=== PATIENT | male | born 1935 | race Caucasian/White ===

== ENCOUNTER 2019-02-23 10:03 | Inpatient (IN) | payer OTHER, MEDICARE ==
[2019-02-23] MEDS ORDERED: ACETAMINOPHEN 325 MG TAB PO PRN (11:22)
[2019-02-23 11:42] LABS: PLATELET COUNT 154 10^3/uL (150-400)
[2019-02-23] MEDS ORDERED: FUROSEMIDE 100 MG/10 ML VIAL IVP ONE (12:58)
[2019-02-23] MEDS ORDERED: SODIUM BICARBONATE 650 MG TAB PO SCH (13:00)
[2019-02-23] MEDS: CHOLECALCIFEROL VIT D3 1,000 UNITS TAB PO SCH (14:23)
--- NOTE | 2019-02-23 14:43 | GHP ---
[f rep st] HISTORY AND PHYSICAL DATE OF ADMISSION: 02/23/2019 PRIMARY DIAGNOSIS: Congestive heart failure with acute current exacerbation. PAST MEDICAL HISTORY: Includes obesity; hypertension; hyperlipidemia; type 2 diabetes mellitus; obst ructive sleep apnea, currently untreated; BPH; congestive heart failure. SOCIAL HISTORY: Nonsmoker. Occasional drinker, drinks 2-4 times per month. FAMILY HISTORY: Includes father from ulcerative colitis at age 47. Mother at age 88 after hip replacement graft. Grandfather at age 72 from renal failure. ALLERGIES: No known drug allergies. HISTORY OF PRESENTING ILLNESS: An 83-year-old male who was admitted through primary care office for worsening congestive heart failure. He was seen approximately 2 weeks ago and was found to have a BN P of about 6000 and a creatinine of about 3.5. His family reached out to his primary care over the p ast couple of days, noting that he had significantly decompensated and was unable to leave the house due to extreme fatigue and weakness. His shortness of breath had also increased. In discussion with Duane today, he did not feel he was able to even come into the primary care office because of his sev ere decompensation. He did agree to go into the hospital for further evaluation and probable diuresi s. On arrival, he was found to be markedly decompensated with a BNP of 19,500 and found to be in acu te kidney failure with a creatinine of 6.7. Electrolytes currently remain stable. REVIEW OF SYSTEMS: CONSTITUTIONAL: The patient complains of worsened fatigue and generalized weaknes s. Denies fevers, chills. RESPIRATORY: Complains of productive cough and increased shortness of br eath, orthopnea, dyspnea on exertion. CARDIOVASCULAR: Denies chest pain, palpitations, dizziness, l ightheadedness. Has noticed marketed generalized edema and bloating which has worsened over the past week or so. GI: Denies nausea, vomiting, diarrhea, or abdominal tenderness. : Denies changes t o urinary frequency, quantity. Denies dysuria. SKIN: Notes a few scabbed wounds to his lower extre mities. PHYSICAL EXAM: GENERAL: Alert, oriented. VITAL SIGNS: Stable. HEAD: Normocephalic, atraumatic. EENT: PEERL, EOMI. CARDIOVASCULAR: Distant heart sounds. S1, S2. Regular rate and rhythm. LUNG S: Distant breath sounds largely due to body habitus, but no audible rhonchi or rales. ABDOMEN: So ft, nontender, nondistended. Unable to evaluate for hepatosplenomegaly due to body habitus. SKIN: Warm, dry, pale. EXTREMITIES: 3+ by 4+ bilateral lower extremity pitting edema. A few scattered s cabbed wounds to bilateral lower extremities without evidence of infection or complication. NEUROLOG IC: Grossly intact. ASSESSMENT AND PLAN: 1. Congestive heart failure, acute on chronic. We will obtain echocardiogram and consult Cardiology . After discussion with Nephrology, we will start IV Lasix at 120 mg for now to see if we can diures e. Given current ectopy on tele, we will hold off on dobutamine for now. 2. Acute kidney injury. As noted above, I consulted Nephrology (appreciate assistance). Creatinine is currently 6.7, BUN is 107, potassium 4.8. As recommended by Nephrology, we will obtain renal ult rasound, urine sodium, and start Lasix and bicarb. A Blake is placed for monitoring of urine output. We will continue to monitor. 3. History of hypertension. We will hold antihypertensives for now with diuresis and renal failure. 4. Advanced Directives. The patient wishes to discuss code status further with his family. In the past he has suggested that he would not like to be a full COR, but would rather be a DNR. However, a t this time, he would like to remain a full COR until he discusses further with the family. I have e ncouraged them to fill out a MOLST form. 5. Disposition. Admit to inpatient as anticipate greater than 2 midnight stay. /[id number]/MODL
--- NOTE | 2019-02-23 14:57 | PDCONSULT ---
[employer]ant [employer] Superintendent Note: Assessment/Plan: SILVIA on CKD 4: baseline Cr seems to be around 2.2-2.4, now up to 6.7 in setting of marked volume overload, taking lisinopril/Bumex/HCTZ at home, and likely worsening heart failure. - No emergent need for HD but very likely he will need it in the next couple days unless he has marked improvement. - Pt got Lasix 120mg IV x1 today, will evaluate response and adjust as needed. - Will check urine studies, renal US, SPEP/UPEP and free light chains. - Avoid hypotension and nephrotoxins. - Blake catheter to be placed. - Holding lisinopril, would avoid RAAS blockade for now. - Will continue to monitor closely. Hypervolemia: could be from renal disease or heart disease, Echo pending but reportedly has EF around 30%. - Will await Echo results, agree with cardiology consult. - Will check urine PCR. - Will await response to diuretics before adjusting. - Will place on 1200ml fluid restriction. - If pt has poor response to diuretics, would prompt to start dialysis sooner. - Would hold amlodipine and pioglitazone indefinitely. Metabolic acidosis: likely due to renal disease. - Will start on sodium bicarb tabs. - Will check VBG in am. HTN: BP ok at this time, would hold lisinopril and HCTZ for now and will modulate with IV diuretics for now. Will continue to monitor. Thank you for the interesting consult. Nephrology will continue to follow, please call if you have any additional questions or concerns. H & P Stated Complaint: SILVIA Time Seen by Provider: 02/23/19 11:00 HPI/ROS: HPI: Mr. Ramos is an 83 yo M with h/o CKD, DM and HTN who is being admitted today for volume overload and SILVIA. Pt has longstanding HTN and DM, he notes that lately his DM has been more uncontrolled. His baseline Cr recently seems to be around 2.2-2.4, which is where it was earlier this month. Pt states that he noticed in January that he was having worsening swelling, prior to that would occasionally get swelling in ankles but this was more progressive, and he started to have worsening dyspnea on exertion. He was evaluated by PCP earlier this month, noted to have elevated BNP and was started on Bumex 1mg daily. Pt states that initially he lost about 10 pounds in a week, and repeat labs on 02/09 showed Cr up to 3.1 from 2.4. He then felt the swelling get worse, more fatigued, decreased appetite and no taste, and his dyspnea became worse. He was told to come to hospital today for admission. His Cr is now 6.7, he notes that he has not had much UOP lately. He has continued to take Bumex once a day , also taking lisinopril and HCTZ at home. He denies any NSAIDs or other concerning OTC supplements. He denies ever having cardiac issues before, no CAD , no stents, no arrhythmias. He denies any hematuria or dysuria, no rash or synovitis. ROS: positive per HPI, rest of 10-point ROS negative - Medical/Surgical History Hx Asthma: No Hx Chronic Respiratory Disease: No Hx Diabetes: Yes Hx Cardiac Disease: Yes Hx Renal Disease: Yes Hx Cirrhosis: No Hx Alcoholism: No Hx HIV/AIDS: No Hx Splenectomy or Spleen Trauma: No Other PMH: CKD, DM2, Htn, shingles - Family History Significant Family History: Renal disease (grandfather passed of renal failure, aunt had ESRD requiring dialysis) - Social History Smoking Status: Never smoked - Physical Exam Exam: General: alert and oriented, no acute distress Eyes: EOMI, PERRL OP: clear, MMM Neck: supple, no thyromegaly CV: RRR, +3 edema BLE Resp: CTA bilat, nonlabored respirations on RA, no crackles Abd: Soft, NT/ND Neuro: CN II-XII Grossly intact, no asterixis Psych: cooperative, appropriate mood and affect Skin: C/D/I, no rash Constitutional: Initial Vital Signs Temperature (C) 36.6 C 02/23/19 11:30 Heart Rate 109 H 02/23/19 11:30 Respiratory Rate 21 H 02/23/19 11:30 Blood Pressure 117/47 L 02/23/19 11:30 O2 Sat (%) 97 02/23/19 11:30 O2 Delivery Mode Room Air Allergies/Adverse Reactions: No Known Allergies Allergy (Verified 03/23/12 19:12) Home Medications: Medication Instructions Recorded Aspirin [Aspirin 81mg (OTC)] 81 mg PO HS 03/23/12 Cyanocobalamin (Vitamin B-12) 1,000 mcg PO DAILY 03/23/12 [Vitamin B-12] Folic Acid 400 mcg PO DAILY 03/23/12 Levemir Insulin 20 units SQ HS 03/23/12 Lisinopril [Zestril 40 mg (RX)] 40 mg PO DAILY 03/23/12 Metformin HCl [Metformin HCl 1000 1,000 mg PO BID 03/23/12 mg] Niacin ER [Niaspan 1000 mg (RX)] 1,000 mg PO HS 03/23/12 Alpine-3 Ethyl Est-Lovaza [Lovaza 1 2 gm PO BID 03/23/12 gm (RX)] Pioglitazone HCl [Actos] 30 mg PO DAILY 03/23/12 Simvastatin [Zocor 20 mg (RX)] 20 mg PO HS 03/23/12 amLODIPine BESYLATE [Norvasc 10 mg 10 mg PO DAILY 03/23/12 (RX)] Bumetanide [Bumex (*)] 1 mg PO DAILY 02/23/19 Cholecalciferol Vit D3 [Vitamin D3 2,000 units PO DAILY 02/23/19 (*)] Hydrochlorothiazide [HCTZ (*)] 25 mg PO DAILY 02/23/19 Lab and Imaging 02/23/19 11:30 02/23/19 11:30 WBC 6.91 10^3/uL (3.80-9.50) 02/23/19 11:30 RBC 3.84 10^6/uL (4.40-6.38) L 02/23/19 11:30 Hgb 10.9 g/dL (13.7-17.5) L 02/23/19 11:30 Hct 34.6 % (40.0-51.0) L 02/23/19 11:30 MCV 90.1 fL (81.5-99.8) 02/23/19 11:30 MCH 28.4 pg (27.9-34.1) 02/23/19 11:30 MCHC 31.5 g/dL (32.4-36.7) L 02/23/19 11:30 RDW 16.5 % (11.5-15.2) H 02/23/19 11:30 Plt Count 154 10^3/uL (150-400) 02/23/19 11:30 MPV 10.0 fL (8.7-11.7) 02/23/19 11:30 Neut % (Auto) 56.9 % (39.3-74.2) 02/23/19 11:30 Lymph % (Auto) 30.1 % (15.0-45.0) 02/23/19 11:30 [place] % (Auto) 10.9 % (4.5-13.0) 02/23/19 11:30 Eos % (Auto) 1.6 % (0.6-7.6) 02/23/19 11:30 Baso % (Auto) 0.4 % (0.3-1.7) 02/23/19 11:30 Nucleat RBC Rel Count 0.0 % (0.0-0.2) 02/23/19 11:30 Absolute Neuts (auto) 3.93 10^3/uL (1.70-6.50) 02/23/19 11:30 Absolute Lymphs (auto) 2.08 10^3/uL (1.00-3.00) 02/23/19 11:30 Absolute Monos (auto) 0.75 10^3/uL (0.30-0.80) 02/23/19 11:30 Absolute Eos (auto) 0.11 10^3/uL (0.03-0.40) 02/23/19 11:30 Absolute Basos (auto) 0.03 10^3/uL (0.02-0.10) 02/23/19 11:30 Absolute Nucleated RBC 0.00 10^3/uL (0-0.01) 02/23/19 11:30 Immature Gran % 0.1 % (0.0-1.1) 02/23/19 11:30 Immature Gran # 0.01 10^3/uL (0.00-0.10) 02/23/19 11:30 Sodium 141 mEq/L (135-145) 02/23/19 11:30 Potassium 4.8 mEq/L (3.5-5.2) 02/23/19 11:30 Chloride 111 mEq/L (97-110) H 02/23/19 11:30 Carbon Dioxide 16 mEq/l (22-31) L 02/23/19 11:30 Anion Gap 14 mEq/L (6-14) 02/23/19 11:30 BUN 107 mg/dL (7-23) H* 02/23/19 11:30 Creatinine 6.7 mg/dL (0.7-1.3) H 02/23/19 11:30 Estimated GFR 8 02/23/19 11:30 Glucose 234 mg/dL (70-100) H 02/23/19 11:30 Calcium 9.6 mg/dL (8.5-10.4) 02/23/19 11:30 Magnesium 2.2 mg/dL (1.6-2.3) 02/23/19 11:30 Total Bilirubin 0.5 mg/dL (0.1-1.4) 02/23/19 11:30 AST 16 IU/L (17-59) L 02/23/19 11:30 ALT 18 IU/L (21-72) L 02/23/19 11:30 Alkaline Phosphatase 43 IU/L (38-126) 02/23/19 11:30 NT-Pro-B Natriuret Pep 86282 pg/mL (0-450) H 02/23/19 11:30 Total Protein 6.8 g/dL (6.3-8.2) 02/23/19 11:30 Albumin 4.2 g/dL (3.5-5.0) 02/23/19 11:30
--- NOTE | 2019-02-23 15:22 | PDMN ---
Medical Necessity Medical necessity: [facility] [place] [place] M190 Heart Failure, A-2 days: 83 yo w/ severe acute on chronic CHF, BNP 19,500, renal failure w/ creat 6.7, BUN 107. Pt w/ extreme fatigue and weakness, SOB. Tachy >100, tachypneac. Cardio and Neph consults. Meets [facility] [place] IP criteria for M190 w/ acute renal failure. Admit to ICU.
[2019-02-23] MEDS ORDERED: LIDOCAINE 2% JELLY 20 ML (UROJECT) ONE (15:49)
[2019-02-23] MEDS ORDERED: LIDOCAINE 2% JELLY 20 ML (UROJECT) UR ONE (16:00)
[2019-02-23] MEDS: SODIUM BICARBONATE 650 MG TAB PO SCH ×2 (16:30→20:40)
--- NOTE | 2019-02-23 16:54 | ECHO ---
[email or web address] [address] [address] Main: [phone] Echocardiography Examination Transthoracic Name: GITA VAN MR#: [id number] Study Date: 02/23/2019 Study Time: 11:34 AM Date of : 1935 Age: 83 year(s) Height: 180.3 cm (71 in.) Weight: 127.91 kg (282 lb.) BSA: 2.44 m2 Gender: Male Examination: Echo Contrast: Image Quality: Fair Rhythm: Tachycardia Heart Rate: 110 bpm BP: 117 mmHg/47 mmHg Indication: Fluid overload, weakness, Congestive heart failure with dyspnea Procedure Staff Referring Physician: [employer] Supervisor: Chaim Alves RDCS Reading Physician: Mahogany Sung MD Requesting Provider: Ordering Physician: Roselyn Lopez Indication: Fluid overload, weakness, Congestive heart failure with dyspnea Measurements Chambers AV/MV Label Value Normal Value Label Value Normal Value LVOT Vmax 0.9 m/s (0.7m/s - 1.1m/s) AV PGmax 7 mmHg LVOT VTI 17.2 cm (18cm - 22cm) AV PGmean 5 mmHg LVDd, MM 7.3 cm (4.2cm - 5.9cm) AV Vmax 1.3 m/s LVDd, 2D 6.4 cm (4.2cm - 5.9cm) MV E Vmax 1.08 m/s LVDs, MM 6.3 cm (2cm - 3.8cm) MV A Vmax 0.94 m/s LVDs, 2D 5.5 cm (2.1cm - 4cm) MV E/A 1.15 IVSd, MM 1.2 cm (0.6cm - 0.9cm) MV E/E' lateral 22.2 IVSd, 2D 1 cm (0.6cm - 1.1cm) MV E/E' septal 24.6 (0.45 - 1.25) LVPWd, MM 1.2 cm (0.6cm - 1cm) MV E' septal 0.04 m/s LVPWd, 2D 1.1 cm (0.6cm - 1cm) MV E' lateral 0.05 m/s LVEF, 2D 28 % (54% - 74%) MV E/E' mean 24 LVOT PGmean 2 mmHg MV E' mean 0.04 m/s LVOT Vmean 0.56 m/s TV/PV LA Volume, BP 75 ml (18ml - 58ml) Label Value Normal Value LADs, 2D 4.6 cm (3cm - 4cm) RA Pressure 5 mmHg LAESV index, BP 30.7 ml/m2 RVSP 22 mmHg Additional Vessels TR Pmax 17 mmHg Label Value Normal Value TR Vmax 2.08 m/s AoRoot, MM 2.7 cm (2.2cm - 3.7cm) PV PGmax 4 mmHg Patient: GITA VAN Study Date: 02/23/2019 Page 1 of 2 11:34 AM PV Vmax, Caliper 0.95 m/s (0.6m/s - 0.9m/s) Conclusions 1. The left ventricle is mild to moderately dilated. There is severely reduced LV systolic function with an ejection fraction of 25%. There is severe global hypokinesis and dyskinesis of the interventricular septum. Grade 2 diastolic dysfunction with elevated left sided filling pressures. 2. The right ventricle is normal in size. Mildly reduced RV systolic function. 3. The left atrium is borderline dilated. 4. the mitral valve is normal. 5. Tricuspid valve is normal. PA pressure is probably normal, although jet assessment was difficult. 6. aortic valve is normal in structure and function. 7. No previous echo Findings Left Ventricle: the interventricular septum is hypokinetic and dyskinetic. There is diffuse global hypokinesis as well.. Mildly to moderately dilated left ventricle. Moderately to severely reduced systolic LV function. The EF is visually estimated to be 25 %. EF range is estimated at 20 % - 30 %. Left ventricle wall thickness is normal. Grade II Diastolic Dysfunction. Left atrial filling pressure is elevated. No LV hypertrophy. Right Ventricle: Normal size right ventricle. Right ventricular systolic function is mildly reduced. Left Atrium: The left atirum is borderline dilated. Right Atrium: The right atrium is normal in size. Mitral Valve: Mitral valve appears structurally normal. No significant mitral regurgitation. No mitral valve stenosis. Aortic Valve: Aortic leaflets are structurally normal. No significant aortic valve regurgitation. There is no aortic stenosis. Tricuspid Valve: Tricuspid valve leaflets are structurally normal. Technically difficult assessment of tricuspid regurgitation. Right Ventricular systolic pressure is measured at 22 mmHg. Pulmonic Valve: Pulmonic leaflets are structurally normal. Pulmonic valve insufficiency could not be evaluated on the basis of this study. Aorta: The aorta is normal. The aortic root size in M-mode measures 2.7 cm. Aorta Measurements AoRoot, MM is 2.7 cm. Pericardium: No pericardial effusion. Exam Details Procedure Ordered: Echo Image Quality: Fair (No Signature Object) Patient: GITA VAN Study Date: 02/23/2019 Page 2 of 2 11:34 AM [id number]
--- NOTE | 2019-02-23 18:03 | GCON ---
[f rep st] CONSULTATION CONSULTATION PROCEDURE NOTE DATE OF CONSULTATION: 02/23/2019 We have been asked to see this patient because of difficulty passing a catheter. He is admitted for congestive heart failure and acute exacerbation and he has had multiple attempts at catheterization i n the ICU unsuccessful and they have asked for us to see him. By history he has had no previous nina tourinary history and no genitourinary manipulation. SOCIAL HISTORY: He is a nonsmoker. Occasional drinker. FAMILY HISTORY: Father from ulcerative colitis at age 47. Mother at age 88 after hip surg elon. Grandfather at 72 from renal failure. ALLERGIES: He has no known drug allergies. By history, he has had congestive heart failure and is admitted for assessment of that. I have revie wed his labs and his review of systems. PHYSICAL EXAM: GENERAL: He is alert and oriented x3. HEART: Regular rate and rhythm. He has no r espiratory labored breathing. He has abdominal obesity and lower extremities have peripheral edema. His scrotum was normal. He has blood coming from his urethra, probably 60 mL of blood it seems tota l that is around the genital area. I discussed with him the issues at hand and recommended that he consider letting me place a catheter. He was reluctant, but agreed and after being prepped and draped in normal sterile fashion, Uro jet xylocaine was placed in the urethra and then at that point, I was able to pass a 16 Blake catheter ov er a catheter guidewire that passed into the bladder and a 15 cc balloon inflated. Urine was clear a nd he tolerated the procedure well. Recommend he continue catheterization and after recovery it woul d be good that they attempt to remove his catheter and if he can void leave it out, and then to see u s in the office for followup for possible cystoscopy. It should be said that Dr. Lopez was on-alicja l for [facility]. He had forwarded the message to me and asked that I see the patien t for catheterization since he was at a different facility and the order had originally been for Dr. Hawley, but I put the catheter in because of my availability and requested by the on-call urologist. /[id number]/MODL
--- NOTE | 2019-02-23 18:35 | SOAPPROG ---
SOAP Progress Note Assessment/Plan: Assessment: Plan: Pt to remain " Full Core". 02/23/19 18:34 Subjective: Discussed CPR. Pt is not ready to be a DNR status patient. Therefore, will remain a full core. Discussion of "Three Wishes" is ongoing. Objective: Vital Signs Temp Pulse Resp BP Pulse Ox 98.2 F 108 H 22 H 105/67 92 02/23/19 16:00 02/23/19 18:00 02/23/19 18:00 02/23/19 18:00 02/23/19 18:00 Laboratory Results 02/23/19 11:30 02/23/19 11:30 02/22/19 02/23/19 02/24/19 05:59 05:59 05:59 Intake Total 400 Output Total 500 Balance -100 ICD10 Worksheet Patient Problems: Problems Problem Status Onset Congestive cardiac failure Acute Congestive cardiomyopathy Acute Diabetes mellitus Acute Renal insufficiency Acute - ICD10 Problem Qualifiers (1) Congestive cardiomyopathy (2) Congestive cardiac failure (3) Diabetes mellitus (4) Renal insufficiency
[2019-02-23] MEDS: CARVEDILOL 3.125 MG TAB PO SCH (20:25)
[2019-02-23] MEDS: APIXABAN 2.5 MG TAB PO SCH (20:25)
[2019-02-23] MEDS: ATORVASTATIN CALCIUM 10 MG TAB PO SCH (20:25)
[2019-02-23] MEDS: INSULIN GLARGINE 100 UNITS/ML UNIT SC SCH (20:26)
[2019-02-23] MEDS ORDERED: INSULIN GLARGINE 100 UNITS/ML UNIT SC SCH (21:00)
[2019-02-24 06:36] LABS: PLATELET COUNT 139 10^3/uL (150-400)
[2019-02-24] MEDS: CARVEDILOL 3.125 MG TAB PO SCH (08:31)
[2019-02-24] MEDS: CYANO/VITAMIN B12 1000 MCG TAB PO SCH (08:31)
[2019-02-24] MEDS: APIXABAN 2.5 MG TAB PO SCH ×2 (08:31→20:38)
[2019-02-24] MEDS: CHOLECALCIFEROL VIT D3 1,000 UNITS TAB PO SCH (08:32)
[2019-02-24] MEDS: SODIUM BICARBONATE 650 MG TAB PO SCH ×3 (08:32→20:37)
--- NOTE | 2019-02-24 08:43 | SOAPPROG ---
SOAP Progress Note Assessment/Plan: Assessment: I am encouraged regarding the events of the last 18 hours. Plan: Pt to remain " Full Core". Continue with IV Lasix. Agree with decrease in dose. Will gently increase the coreg. Consider Entresto when his creatinine improves a bit. 02/23/19 18:34 02/24/19 08:40 Subjective: Didn't have a great night. Was not able to get to sleep until around 4:00 AM. No shortness of breath, however requiring oxygen, likely due to his untreated sleep apnea. Objective: Vital Signs Temp Pulse Resp BP Pulse Ox 99.1 F 96 20 128/100 H 95 02/24/19 08:00 02/24/19 08:00 02/24/19 08:00 02/24/19 08:00 02/24/19 08:00 Laboratory Results 02/24/19 04:40 02/24/19 06:00 02/23/19 02/24/19 02/25/19 05:59 05:59 05:59 Intake Total 400 Output Total 2230 Balance -1830 Cor with rate still around 100, with frequent premature contractions. Urine output is excellent and createnine has actually decreased despite a dramatic diuresis. Blood pressure has also improved despite adding low dose coreg and large diuresis. ICD10 Worksheet Patient Problems: Problems Problem Status Onset Congestive cardiac failure Acute Congestive cardiomyopathy Acute Diabetes mellitus Acute Renal insufficiency Acute - ICD10 Problem Qualifiers (1) Congestive cardiomyopathy (2) Congestive cardiac failure (3) Diabetes mellitus (4) Renal insufficiency
[2019-02-24] MEDS ORDERED: CARVEDILOL 3.125 MG TAB PO ONE ×2 (08:44→11:30)
[2019-02-24] MEDS ORDERED: FUROSEMIDE 100 MG/10 ML VIAL IVP ONE (09:00)
--- NOTE | 2019-02-24 10:02 | PDCONSULT ---
Neonatal Surgeon Note: ASSESSMENT 83 year old male with newly diagnosed acute decompensated systolic heart failure and SILVIA with unknown baseline serum creatine. # acute decompensated CHF, EF # DM2 # obesity # ZACKARY, per report. No records # hypertension # anemia # SILVIA on CKD at least stage 2 # BPH, required Blake placement by Urology PLAN # agree with ongoing diuresis, will need higher dose given decreased GFR # check VBG from PICC line is a surrogate for mixed venous sat # check ferritin consider iron supplementation given systolic heart failure # consider afterload reduction but defer to Cardiology # agree with new onset CHF workup as per Cardiology # avoid nephrotoxins # may consider finasteride vs tamsulosin as outpatient # oral bicarb per nephrology # SSI # Feeding - low salt fluid restricted diet # Analgesia none # Sedation none # Thromboprophylaxis - SQ hep # Head of bed elevated # Ulcer prophylaxis -NA # Glucose SSI # Skin no skin breakdown # Delirium - delirium precautions As I was asked by Dr. Larson of Hospital Medicine to evaluate this patient for ICU care in the setting of new onset heart failure and IAK and CKD CC SOB HPI Dog is a very pleasant 83-year-old male followed by Dr. Larson for type 2 diabetes, CKD and lower extremity edema. He recent was in the process of undergoing a sleep study however did not complete the study due to insomnia and unable to tolerate the devices. Patient describes progressive dyspnea exertion , lower extremity edema. His creatinine was checked as outpatient was found to be elevated to 3.5 and in NT proBNP elevated to approximately 6000. He also has BPH and has difficulties urinating. Patient has been resistance medical care and has previously declined at diagnostic and therapeutic interventions. Due to further worsening he presents emergency department was found to have acutely decompensated [place] [address] a a KI with a serum creatinine of 6.7. No fevers, chills, nausea, vomiting, rash, skin changes Allergies No known drug allergies Past medical history Obesity, type 2 diabetes, ZACKARY, CHF, BPH Social history Nonsmoker lives in [facility] Family history No family history of end-stage renal disease Review of systems A comprehensive 10 point review of systems was obtained is negative except as per HPI Physical exam Afebrile, pulse 78, blood pressure 153/102, respiratory is 18 94% room air GEN: NAD, resting in bed NEURO: A&Ox3, CN 2-12 GI, appropriate fluency, normal termite control service representative recall HEENT: PERRL, EOMI, MMM, OP clear NECK: supple, trachea midline CHEST normal shape, no pes excavatum CVS: rrr no m/r/g, no JVD appreciated PULM: CTAB, no wheezes/rales/rhonchi ABD: soft, NT, ND, NABS EXT: 1+ bilateral lower extremity edema SKIN: warm, dry, intact, no rash PSYCH CAM negative, appropriate affect Labs I reviewed interpreted patient's laboratory data significant for elevated creatinine, hyperkalemia, elevated NT proBNP, no leukocytosis Imaging I reviewed interpreted radiographic images well as formal radiology reads 02/24/2019 CXR-cardiomegaly, cephalization of vessels, interstitial edema, no focal infiltrate
--- NOTE | 2019-02-24 13:02 | PDCARCONS ---
Cardiology Consult Reason for Consult: Ischemic Cardiomyopathy Chief Complaint: shortness of breath History of Present Illness: The patient is an 83-year-old male with a history of hypertension, hyperlipidemia, diabetes mellitus type II, obstructive sleep apnea and congestive heart failure. The patient was admitted for worsening congestive heart failure. The patient's echocardiogram revealed severely reduced LV systolic function and decreased ejection fraction measuring 25%. The patient had wall motion abnormalities on the study as well. History Information - Allergies/Home Medication List Allergies/Adverse Reactions: No Known Allergies Allergy (Verified 03/23/12 19:12) Home Medications: Aspirin [Aspirin 81mg (OTC)] 81 mg PO HS 03/23/12 [Last Taken 02/22/19 22:00] Cyanocobalamin (Vitamin B-12) [Vitamin B-12] 1,000 mcg PO DAILY 03/23/12 [Last Taken 02/22/19 10:00] Folic Acid 400 mcg PO DAILY 03/23/12 [Last Taken 02/22/19 10:00] Levemir Insulin 20 units SQ HS 03/23/12 [Last Taken 02/22/19 22:00] Lisinopril [Zestril 40 mg (RX)] 40 mg PO DAILY 03/23/12 [Last Taken 02/22/19 10: 00] Metformin HCl [Metformin HCl 1000 mg] 1,000 mg PO BID 03/23/12 [Last Taken 02/22 22:00] Niacin ER [Niaspan 1000 mg (RX)] 1,000 mg PO HS 03/23/12 [Last Taken 02/22/19 22 :00] [place]-3 Ethyl Est-Lovaza [Lovaza 1 gm (RX)] 2 gm PO BID 03/23/12 [Last Taken 22:00] Pioglitazone HCl [Actos] 30 mg PO DAILY 03/23/12 [Last Taken 02/22/19 10:00] Simvastatin [Zocor 20 mg (RX)] 20 mg PO HS 03/23/12 [Last Taken 02/22/19 22:00] amLODIPine BESYLATE [Norvasc 10 mg (RX)] 10 mg PO DAILY 03/23/12 [Last Taken 10:00] Bumetanide [Bumex (*)] 1 mg PO DAILY 02/23/19 [Last Taken 02/22/19 10:00] Cholecalciferol Vit D3 [Vitamin D3 (*)] 2,000 units PO DAILY 02/23/19 [Last Taken 02/22/19 10:00] Hydrochlorothiazide [HCTZ (*)] 25 mg PO DAILY 02/23/19 [Last Taken 02/22/19 10: 00] I have personally reviewed and updated: family history, medical history, social history Past Medical History: - Past Medical History CHF, diabetes type 2, hypertension, hyperlipidemia - Family History Positive for: CAD, hypertension Additional family history: The patient's father of ulcerative colitis at age 47. His mother at the age of 88 after a hip replacement graft. The patient's grandfather at 72 from renal failure. - Social History Smoking Status: Never smoked Alcohol Use: Occasionally Drug Use: None Cardiac History - Cardiac History Past Cardiac History: CAD, OTHER Cardiac Risk Factors: lipidemia, diabetes mellitus, age > 65, male NICOLE Risk Evaluation age greater or equal to 65: yes greater or equal to 3 CAD risk factors: yes known CAD(stenosis greater or eqaul to 50%): no ASA use in past 7 days: no severe angina(greater or equal to 2 episodes in 24hrs): no EKG ST changes greater or equal to 0.5mm: no positive cardiac marker: no Total Score: 2 NICOLE Score: 8.3% risk Physical Exam Physical Exam: Temp Pulse Resp BP Pulse Ox 37.5 C 92 20 94/63 L 92 02/24/19 12:00 02/24/19 12:00 02/24/19 12:00 02/24/19 12:00 02/24/19 12:00 O2 (L/minute) 2 Constitutional: chronically ill appearing, obese Eyes: PERRL, anicteric sclera Ears, Nose, Mouth, Throat: moist mucous membranes, ears appear normal Cardiovascular: regular rate and rhythym, JVD, edema Respiratory: no respiratory distress, reduced air movement Gastrointestinal: normoactive bowel sounds, soft, non-tender abdomen, No guarding, No rebound Skin: warm, normal color Neurologic: AAOx3 Psychiatric: interacting appropriately, not anxious Lab and Imaging 02/24/19 04:40 02/24/19 06:00 WBC 8.60 10^3/uL (3.80-9.50) 02/24/19 04:40 RBC 3.60 10^6/uL (4.40-6.38) L 02/24/19 04:40 Hgb 10.2 g/dL (13.7-17.5) L 02/24/19 04:40 Hct 32.6 % (40.0-51.0) L 02/24/19 04:40 MCV 90.6 fL (81.5-99.8) 02/24/19 04:40 MCH 28.3 pg (27.9-34.1) 02/24/19 04:40 MCHC 31.3 g/dL (32.4-36.7) L 02/24/19 04:40 RDW 16.2 % (11.5-15.2) H 02/24/19 04:40 Plt Count 139 10^3/uL (150-400) L 02/24/19 04:40 MPV 11.0 fL (8.7-11.7) 02/24/19 04:40 Neut % (Auto) 77.2 % (39.3-74.2) H 02/24/19 04:40 Lymph % (Auto) 14.9 % (15.0-45.0) L 02/24/19 04:40 [place] % (Auto) 7.3 % (4.5-13.0) 02/24/19 04:40 Eos % (Auto) 0.2 % (0.6-7.6) L 02/24/19 04:40 Baso % (Auto) 0.2 % (0.3-1.7) L 02/24/19 04:40 Nucleat RBC Rel Count 0.0 % (0.0-0.2) 02/24/19 04:40 Absolute Neuts (auto) 6.63 10^3/uL (1.70-6.50) H 02/24/19 04:40 Absolute Lymphs (auto) 1.28 10^3/uL (1.00-3.00) 02/24/19 04:40 Absolute Monos (auto) 0.63 10^3/uL (0.30-0.80) 02/24/19 04:40 Absolute Eos (auto) 0.02 10^3/uL (0.03-0.40) L 02/24/19 04:40 Absolute Basos (auto) 0.02 10^3/uL (0.02-0.10) 02/24/19 04:40 Absolute Nucleated RBC 0.00 10^3/uL (0-0.01) 02/24/19 04:40 Immature Gran % 0.2 % (0.0-1.1) 02/24/19 04:40 Immature Gran # 0.02 10^3/uL (0.00-0.10) 02/24/19 04:40 Puncture Site VENOUS 02/24/19 09:10 Patient Temperature 37.0 DEGREES 02/24/19 09:10 VBG pH 7.36 (7.31-7.42) 02/24/19 09:10 VBG HCO3 16 mEQ/L (22-26) L 02/24/19 09:10 VBG Total CO2 17 mEq/L (21-27) L 02/24/19 09:10 VBG O2 Saturation 69 % (65-75) 02/24/19 09:10 VBG Base Excess -8.0 mEq/L (-2.5-2.5) L 02/24/19 09:10 Mixed VBG pCO2 29 mmHg (40-44) L 02/24/19 09:10 Mixed VBG pO2 36 mmHG (35-40) 02/24/19 09:10 Total O2 Concentration 2.0 LITERS 02/24/19 09:10 Turbidity Cancelled 02/24/19 04:10 Sodium 141 mEq/L (135-145) 02/24/19 06:00 Potassium 5.2 mEq/L (3.5-5.2) 02/24/19 06:00 Chloride 111 mEq/L (97-110) H 02/24/19 06:00 Carbon Dioxide 15 mEq/l (22-31) L 02/24/19 06:00 Anion Gap 15 mEq/L (6-14) H 02/24/19 06:00 BUN 106 mg/dL (7-23) H* 02/24/19 06:00 Creatinine 6.2 mg/dL (0.7-1.3) H 02/24/19 06:00 Estimated GFR 9 02/24/19 06:00 Glucose 186 mg/dL (70-100) H 02/24/19 06:00 POC Glucose 167 mg/dL (70-100) H 02/24/19 08:06 Calcium 9.1 mg/dL (8.5-10.4) 02/24/19 06:00 Phosphorus 5.0 mg/dL (2.5-4.5) H 02/24/19 06:00 Magnesium 2.2 mg/dL (1.6-2.3) 02/23/19 11:30 Ferritin 124.0 ng/mL (17.9-464.0) 02/24/19 09:10 Total Bilirubin 0.7 mg/dL (0.1-1.4) 02/24/19 06:00 AST 14 IU/L (17-59) L 02/24/19 06:00 ALT 29 IU/L (21-72) 02/24/19 06:00 Alkaline Phosphatase 35 IU/L (38-126) L 02/24/19 06:00 NT-Pro-B Natriuret Pep 55306 pg/mL (0-450) H 02/23/19 11:30 Total Protein 5.8 g/dL (6.3-8.2) L 02/24/19 06:00 Total Protein (PEP) 5.7 g/dL (6.3-8.2) L 02/23/19 15:15 Albumin 3.6 g/dL (3.5-5.0) 02/24/19 06:00 Vitamin B12 974 pg/mL (239-931) H 02/24/19 06:00 25-OH Vitamin D Total 54.8 ng/mL (30.0-100.0) 02/24/19 06:00 Specimen Hemolysis Cancelled 02/24/19 04:10 Urine Color YELLOW 02/23/19 16:10 Urine Appearance MODERATELY TURBID 02/23/19 16:10 Urine pH 5.0 (5.0-7.5) 02/23/19 16:10 Ur Specific [place] 1.015 (1.002-1.030) 02/23/19 16:10 Urine Protein NEGATIVE (NEGATIVE) 02/23/19 16:10 Urine Ketones NEGATIVE (NEGATIVE) 02/23/19 16:10 Urine Blood 3+ (NEGATIVE) H 02/23/19 16:10 Urine Nitrate NEGATIVE (NEGATIVE) 02/23/19 16:10 Urine Bilirubin NEGATIVE (NEGATIVE) 02/23/19 16:10 Urine Urobilinogen NEGATIVE EU (0.2-1.0) 02/23/19 16:10 Ur Leukocyte Esterase NEGATIVE (NEGATIVE) 02/23/19 16:10 Urine RBC 50-182 /hpf (0-3) H 02/23/19 16:10 Urine WBC 3-5 /hpf (0-3) H 02/23/19 16:10 Ur Epithelial Cells NONE SEEN /lpf (NONE-1+) 02/23/19 16:10 Amorphous Sediment PRESENT /hpf (NONE-1+) 02/23/19 16:10 Urine Bacteria 2+ /hpf (NONE SEEN) H 02/23/19 16:10 Hyaline Casts 5-15 /lpf (0-1) 02/23/19 16:10 Urine Mucus TRACE /lpf (NONE-1+) 02/23/19 16:10 Ur Random Creatinine 185.0 mg/dL 02/23/19 16:10 U Random Total Protein 17 mg/dL (0-11) H 02/23/19 16:10 Ur Random Sodium 48 mEq/L (30-90) 02/23/19 16:10 Ur Random Urea Nitrogn 598.0 mg/dL 02/23/19 16:10 Urine Glucose 1+ (NEGATIVE) H 02/23/19 16:10 Visualized and Interpreted EKG results: Yes EKG additional interpertation: normal sinus rhythm diffuse T wave flattening, also frequent PVC's Telemetry: Sinus rhythm with frequent PVC's Echocardiogram: Reduced ejection fraction with segmental wall motion abnormality consistent with possible ischemic cardiomyopathy.... could be dilated myopathy such as apost viral picture also. A/P Assessment: 1. Acute systolic heart failure with associated renal failure The patient will continue to be treated with diuresis and the plan will be to consider selective angiography with minimal contrast from a radial approach to evaluate the coronary circulation given known CAD. The patient may benefit from right heart cath at that time as well. Discussed with Dr. Larson in some detail. Plan: As above.
[2019-02-24] MEDS: FUROSEMIDE 40 MG/4 ML VIAL IVP SCH ×2 (13:44→20:38)
--- NOTE | 2019-02-24 13:50 | SOAPPROG ---
SOAP Progress Note Assessment/Plan: Assessment: Urinary retention/Gross hematuria Plan: Continue with catheter. Will monitor gross hematuria. 02/24/19 13:49 Subjective: No catheter complaints . Denies previous history of gross hematuria Objective: Vital Signs Temp Pulse Resp BP Pulse Ox 37.5 C 92 20 94/63 L 92 02/24/19 12:00 02/24/19 12:00 02/24/19 12:00 02/24/19 12:00 02/24/19 12:00 Laboratory Results 02/24/19 04:40 02/24/19 06:00 02/23/19 02/24/19 02/25/19 05:59 05:59 05:59 Intake Total 400 Output Total 2230 Balance -1830 Physical Exam - Physical Exam General Appearance: alert Respiratory: No respiratory distress Cardiac/Chest: other (skipping beats) Male Genitalia: other (frankly bloody urine without clots) ICD10 Worksheet Patient Problems: Problems Problem Status Onset Congestive cardiac failure Acute Congestive cardiomyopathy Acute Diabetes mellitus Acute Renal insufficiency Acute
--- NOTE | 2019-02-24 13:58 | SOAPPROG ---
SOAP Progress Note Assessment/Plan: Assessment: #SILVIA on CKD4 -baseline Cr low 2 range -no hydro on u/s. Morales in with hematuria but no clots-- monitor -SPEP neg M spike -now with Cr >6, uremic symptoms in setting of volume overload, underlying reduced LVEF---long discussion with pt today and he is willing to proceed with dialysis. Will ask IR to place temp IJ line in am with short HD run to follow. I explained to pt there is high likelihood he may require HD as outpt and may be ESRD but too soon to say. If we do need TDC later, will need to hold eliquis for 2 days (ok to just hold am dose for temp line per IR when I spoke with them) . #CHF LVEF 25%, grade 2 diastolic dysfunction, mild RV dysfunction -volume overload and diuresing -cardiology following-- I discussed with pt the risk of IV contrast as well, Ultimately defer to cardiology on timing of this but pt understanding of risk #anemia CKD -SPEP no m spike. Free light chains pending -check iron stores -Hb at goal for CKD, no role for SARAH BETH just yet but may require soon #MBD of CKD -check Phos am labs, renal diet when taking po #metabolic acidosis -will improve once we start HD, on po supplement for now #DM2 I discussed with RN, IR, and pharmacy Lora Rubio MD [facility] pager [phone] 02/24/19 14:53 Subjective: Feels tired. Appetite poor, not eating much. No increasing sob. No cp. Long discussion about dialysis. Objective: Vital Signs Temp Pulse Resp BP Pulse Ox 37.5 C 92 20 94/63 L 92 02/24/19 12:00 02/24/19 12:00 02/24/19 12:00 02/24/19 12:00 02/24/19 12:00 Laboratory Results 02/24/19 04:40 02/24/19 06:00 02/23/19 02/24/19 02/25/19 05:59 05:59 05:59 Intake Total 400 Output Total 2230 Balance -1830 Physical Exam - Physical Exam General Appearance: alert, no apparent distress EENT: other (mmm) Respiratory: lungs clear Cardiac/Chest: regular rate, rhythm, other (no rub) Abdomen: normal bowel sounds, non-tender, soft Male Genitalia: other (morales with hematuria, no large clots noted) Extremities: other (+edema bilat LE) Neuro/Psych: alert, oriented x 3 ICD10 Worksheet Patient Problems: Problems Problem Status Onset Congestive cardiac failure Acute Congestive cardiomyopathy Acute Diabetes mellitus Acute Renal insufficiency Acute
--- NOTE | 2019-02-24 15:08 | WOCRNPDOC ---
WOCRN Advanced Assessment Note - Skin Integrity Problem, Advanced Assess Left Dorsal Foot Dressing Type: Open to Air Wound Bed Constitution: Scab, Stable Eschar Site Measurement - Head-to-Toe Length X Width X Depth (cm): [id number] Skin Integrity Problem Comment: Patient scratched area with a dog brush a few weeks ago and created a wound. No sign of infection. Will initiate moist wound healing and cream for skin care. Wound care will sign off. Leonard VOSS in room for care.
--- NOTE | 2019-02-24 16:46 | ASMTCASEMG ---
Living Arrangements What is your living Answers: With Spouse arrangement? Who do you live with? Type Of Residence What kind of residence do Answers: House you live in? Discharge Plan Comments Coordination Status Comments Notes: Patient is an 83yo male who was admitted through his PCP for worsening congestive heart failure. PT/OT/wound care have been ordered for the patient. D/C plan TBD. CM will follow. Date Signed: 02/24/2019 04:45 PM Electronically Signed By:La Ryan LCSW
[2019-02-24] MEDS: CARVEDILOL 6.25 MG TAB PO SCH (17:40)
[2019-02-24] MEDS: INSULIN GLARGINE 100 UNITS/ML UNIT SC SCH (20:54)
[2019-02-24] MEDS: ATORVASTATIN CALCIUM 10 MG TAB PO SCH (20:57)
[2019-02-24] MEDS ORDERED: traZODone 50 MG TAB PO SCH (21:00)
[2019-02-25] MEDS: FUROSEMIDE 40 MG/4 ML VIAL IVP SCH ×3 (06:01→23:01)
--- NOTE | 2019-02-25 08:52 | SOAPPROG ---
SOAP Progress Note Assessment/Plan: Assessment: Plan: 02/25/19 08:50 SILVIA on CKD, appreciate renal input. Chest catheter today, Cr stable CHF with reduced EF, diuresis is good. BP fair. Tolerating higher dose of coreg Reduced EF with wall motion irregularities, poss cath DM--continue SSI insomnia--increase trazodone probable ZACKARY, continue work with CPAP Subjective: Sleep remains to be a challenge. CPAP therapy was difficult tolerate. No SOB, no CP. Appetite reduced, stools soft. Edema improved Objective: Vital Signs Temp Pulse Resp BP Pulse Ox 36.6 C 93 16 127/58 H 96 02/25/19 04:00 02/25/19 04:00 02/25/19 04:00 02/25/19 04:00 02/25/19 04:00 Laboratory Results 02/24/19 04:40 02/25/19 04:30 02/24/19 02/25/19 02/26/19 05:59 05:59 05:59 Intake Total 400 1300 Output Total 2230 3300 Balance -1829 -1999 Gen: pleasant, appears comfortable HEENT: full neck Lungs: CTAB Heart tachy around 100 sinus with frequent PVC Abd + bs soft, obese LE's minimal edema at this point Output has been good. Cr 6.2 BUN 106 ICD10 Worksheet Patient Problems: Problems Problem Status Onset Congestive cardiac failure Acute Congestive cardiomyopathy Acute Diabetes mellitus Acute Renal insufficiency Acute
[2019-02-25] MEDS: CARVEDILOL 6.25 MG TAB PO SCH ×2 (09:49→22:59)
[2019-02-25] MEDS: CYANO/VITAMIN B12 1000 MCG TAB PO SCH (09:49)
[2019-02-25] MEDS: CHOLECALCIFEROL VIT D3 1,000 UNITS TAB PO SCH (09:49)
[2019-02-25] MEDS: SODIUM BICARBONATE 650 MG TAB PO SCH ×3 (09:50→22:34)
--- NOTE | 2019-02-25 10:23 | CPEKG ---
Test Reason : OPEN Blood Pressure : / mmHG Vent. Rate : 106 BPM Atrial Rate : 108 BPM P-R Int : 179 ms QRS Dur : 111 ms QT Int : 358 ms P-R-T Axes : 072 -22 119 degrees QTc Int : 476 ms Sinus tachycardia Multiform ventricular premature complexes Borderline left axis deviation Low voltage, extremity leads Borderline prolonged QT interval Confirmed by Blane Cavazos ([id number]) on 02/25/2019 10:23:21 AM Referred By: Patel Larson Confirmed By:Blane Cavazos
--- NOTE | 2019-02-25 12:27 | PDINTPN ---
Director Of Training Progress Note Assessment/Plan: ASSESSMENT 83 year old male with newly diagnosed acute decompensated systolic heart failure and SILVIA with unknown baseline serum creatine. # acute decompensated CHF, reduced EF # DM2 # obesity # ZACKARY, per report. No records # hypertension # anemia # SILVIA on CKD, with poor renal recovery # BPH, required Blake placement by Urology PLAN # plans for tunneled dialysis catheter later today # continue diuresis # continue low-dose beta-violetta # check VBG from PICC line is a surrogate for mixed venous sat # avoid nephrotoxins # may consider finasteride vs tamsulosin but defer to Urology # oral bicarb per nephrology # SSI # Feeding - low salt fluid restricted diet # Analgesia none # Sedation none # Thromboprophylaxis - SQ hep # Head of bed elevated # Ulcer prophylaxis -NA # Glucose SSI # Skin no skin breakdown # Delirium - delirium precautions Subjective: Still with good urine output with diuretics. Unfortunately BUN continues to remain elevated greater than 100 and serum creatinine unchanged. No new fevers , chills, nausea vomiting. Plans for tunneled dialysis catheter today Objective: Vital Signs Temp Pulse Resp BP Pulse Ox 37.1 C 89 20 91/42 L 92 02/25/19 11:51 02/25/19 11:51 02/25/19 11:51 02/25/19 11:51 02/25/19 11:51 Laboratory Results 02/24/19 04:40 02/25/19 04:30 02/24/19 02/25/19 02/26/19 05:59 05:59 05:59 Intake Total 400 1300 Output Total 2230 3300 650 Balance -1830 -1999 -404 Physical Exam - Physical Exam General Appearance: alert, no apparent distress EENT: PERRL/EOMI, normal ENT inspection Neck: non-tender, full range of motion Respiratory: chest non-tender, lungs clear Cardiac/Chest: normal peripheral pulses, regular rate, rhythm, edema, No gallop Abdomen: normal bowel sounds, non-tender Male Genitalia: other (Blake) Back: Normal inspection Skin: normal color, warm/dry, No cyanosis Extremities: normal range of motion, non-tender, pedal edema, swelling Neuro/Psych: no motor/sensory deficits, alert, normal mood/affect ICD10 Worksheet Patient Problems: Problems Problem Status Onset Congestive cardiac failure Acute Congestive cardiomyopathy Acute Diabetes mellitus Acute Renal insufficiency Acute
[2019-02-25] MEDS ORDERED: NS 1,000 ML IV PRN ×2 (15:25→20:05)
--- NOTE | 2019-02-25 15:32 | SOAPPROG ---
SOAP Progress Note Assessment/Plan: Assessment: SILVIA on CKD4 volume overload and SOB CHF with low EF counseled regarding dialysis, counseled that will likely need tunneled HD cath, can change to tunneled HD cath on Friday son in law present, discussed plan with him as well all questions answered Plan: HD today HD tomorrow HD Friday if still requiring HD on Friday convert to tunneled HD cath and look for outpatient HD spot 02/25/19 15:29 Subjective: spirits good had a nice discussion with Phuc today no cp, still SOB no nausea or vomiting wants something to eat, OK with me Objective: Vital Signs Temp Pulse Resp BP Pulse Ox 37.1 C 89 20 91/42 L 92 02/25/19 11:51 02/25/19 11:51 02/25/19 11:51 02/25/19 11:51 02/25/19 11:51 Laboratory Results 02/24/19 04:40 02/25/19 04:30 02/24/19 02/25/19 02/26/19 05:59 05:59 05:59 Intake Total 400 1300 Output Total 2230 3300 650 Balance -1830 -1999 -650 Physical Exam - Physical Exam General Appearance: alert, obese Neck: normal inspection, other (RIJ temp HD cath) Respiratory: rales, No wheezing, No pleural rub Cardiac/Chest: regular rate, rhythm, edema, systolic murmur, No friction rub Abdomen: normal bowel sounds, non-tender, soft Skin: warm/dry Extremities: swelling Neuro/Psych: alert, normal mood/affect, oriented x 3 ICD10 Worksheet Patient Problems: Problems Problem Status Onset Congestive cardiac failure Acute Congestive cardiomyopathy Acute Diabetes mellitus Acute Renal insufficiency Acute
[2019-02-25 17:08] LABS: HEPATITIS B SURFACE ANTIGEN NEGATIVE (NEGATIVE)
[2019-02-25 17:30] LABS: HEPATITIS B CORE AB TOTAL NEGATIVE (NEGATIVE); HEPATITIS C ANTIBODY TOTAL NEGATIVE (NEGATIVE)
--- NOTE | 2019-02-25 18:34 | PDCARPN ---
Cardiology Progress Note Chief Complaint: I am feeling a little better. Assessment/Plan: Assessment:1. Dilated cardiomyopathy, known CAD suspected ischemic cardiomyopathy. I will have to hold off on cath for now because the creatinine has not improved. Ultimately we may need to cath him with very limited contrast to determine his coronary anatomy. We could probably do that with less than 40 mls of contrast. Plan for dialysis catheter and hemodialysis noted. Will follow. 02/25/19 18:27 Reviewed/Discussed With: family, multidisciplinary team Time Spent with Patient: greater than 25 minutes Time Spent with Patient: Greater than 25 minutes spent on this patients care, greater than 50% of time spent counseling, educating, and coordinating care regarding the above mentioned plan. Objective: Vital Signs (8 Hrs) Temp Pulse Resp BP Pulse Ox 02/25/19 16:00 37.0 C 93 22 H 130/49 H 94 02/25/19 11:51 37.1 C 89 20 91/42 L 92 Intake/Output (24 Hrs) 02/24/19 02/25/19 02/26/19 05:59 05:59 05:59 Intake Total 400 1300 500 Output Total 2230 3300 1100 Balance -1830 -2000 -600 Intake: Oral (ml) 400 1300 500 IV Intake (ml) 0 Output: Urine (ml) 2230 3300 1100 Catheter 2230 3300 1100 Other: Weight 128.2 kg Output Comment Catheter drg around penis tip changed with cath care Result Diagrams: 02/24/19 04:40 02/25/19 04:30 EKG: sinus rhythm frequent PVC's - Physical Exam Constitutional: obese, other (chronically ill) Eyes: EOMI, anicteric sclera Ears, Nose, Mouth, Throat: moist mucous membranes, no oral ulcers Cardiovascular: systolic murmur, other (sinus with frequent PVCs) Respiratory: reduced air movement, inspiratory crackles Gastrointestinal: normoactive bowel sounds, other (obesity precludes accurate examination) Neurologic: AAOx3, CN II-XII grossly intact Psychiatric: cooperative, interactive ICD10 Worksheet Patient Problems: Problems Problem Status Onset Congestive cardiomyopathy Acute Congestive cardiac failure Acute Diabetes mellitus Acute Renal insufficiency Acute
[2019-02-25] MEDS: traZODone 50 MG TAB PO SCH (22:34)
[2019-02-25] MEDS: APIXABAN 2.5 MG TAB PO SCH (22:34)
[2019-02-25] MEDS: ATORVASTATIN CALCIUM 10 MG TAB PO SCH (22:34)
[2019-02-25] MEDS: INSULIN GLARGINE 100 UNITS/ML UNIT SC SCH (22:41)
[2019-02-25] MEDS ORDERED: HEPARIN 50,000 UNIT/10 ML VIAL ONE (23:01)
[2019-02-26] MEDS: FUROSEMIDE 40 MG/4 ML VIAL IVP SCH ×2 (04:08→10:24)
[2019-02-26 04:22] LABS: PLATELET COUNT 116 10^3/uL (150-400)
[2019-02-26] MEDS: APIXABAN 2.5 MG TAB PO SCH ×2 (08:39→20:27)
[2019-02-26] MEDS: CHOLECALCIFEROL VIT D3 1,000 UNITS TAB PO SCH (08:39)
[2019-02-26] MEDS: CYANO/VITAMIN B12 1000 MCG TAB PO SCH (08:39)
[2019-02-26] MEDS: SODIUM BICARBONATE 650 MG TAB PO SCH ×3 (08:39→20:27)
[2019-02-26] MEDS: CARVEDILOL 6.25 MG TAB PO SCH ×2 (08:39→18:26)
[2019-02-26] MEDS: TAMSULOSIN HCL 0.4 MG CAP PO SCH (08:40)
--- NOTE | 2019-02-26 09:02 | SOAPPROG ---
SOAP Progress Note Assessment/Plan: Assessment: 83 yo male with decompensated systolic heart failure and SILVIA. Plan: Acute on chronic renal failure: creat down to 4.4 today, scheduled HD today, bicarb per renal CHF with reduced EF: good UOP with current lasix dose, BP tolerating lasix and carvedilol. Poss cath when kidneys can tolerate due to wall motion abnormalities. Diabetes Mellitus: SSI and lantus Insomnia: Trazodone ZACKARY: not tolerating CPAP well, but will continue to try DVT Prophylaxis: SQ heparin Dispo: inpt 02/26/19 09:02 Subjective: Duane is up in the chair eating breakfast. Says he is feeling somewhat better than he was on admit. Denies CP or SOB. Objective: Vital Signs Temp Pulse Resp BP Pulse Ox 37.2 C 98 20 99/50 L 92 02/26/19 08:00 02/26/19 08:00 02/26/19 08:00 02/26/19 08:00 02/26/19 08:00 Laboratory Results 02/26/19 04:00 02/26/19 04:00 02/25/19 02/26/19 02/27/19 05:59 05:59 05:59 Intake Total 1300 700 Output Total 3300 1850 Balance -2000 -1150 Gen- alert, oriented, vitals stable Head- normocephalic, atraumatic EENT- PEERL, EOMI Resp- LCTAB, no wheezing, rhonchi, rales, visibly somewhat dyspneic on ambulation CV- S1S2, RRR, no murmurs, rubs, gallops Abd- nondistended, +BS Extremities- 3+ peripheral edema Skin- warm and dry, multiple scabbed sores to BLE Neuro- grossly intact ICD10 Worksheet Patient Problems: Problems Problem Status Onset Congestive cardiac failure Acute Congestive cardiomyopathy Acute Diabetes mellitus Acute Renal insufficiency Acute
[2019-02-26] MEDS ORDERED: D50W 25 GM/50 ML SYR IVP PRN (09:08)
--- NOTE | 2019-02-26 10:05 | SOAPPROG ---
FABIAN Progress Note Assessment/Plan: Assessment: SILVIA on CKD4 volume overload and SOB CHF with low EF counseled regarding dialysis, counseled that will likely need tunneled HD cath, can change to tunneled HD cath on Friday all questions answered Plan: HD today HD tomorrow if still requiring HD on Friday convert to tunneled HD cath and look for outpatient HD spot 02/25/19 15:29 02/26/19 10:01 Subjective: spirits good energy good appetite OK got up and around in the halls with some help today slept OK Objective: Vital Signs Temp Pulse Resp BP Pulse Ox 37.2 C 98 20 99/50 L 92 02/26/19 08:00 02/26/19 08:00 02/26/19 08:00 02/26/19 08:00 02/26/19 08:00 Laboratory Results 02/26/19 04:00 02/26/19 04:00 02/25/19 02/26/19 02/27/19 05:59 05:59 05:59 Intake Total 1300 700 Output Total 3300 1850 Balance -2000 -1150 Physical Exam - Physical Exam General Appearance: alert, obese Neck: normal inspection, other (thick) Respiratory: crackles, No rhonchi, No wheezing Cardiac/Chest: edema, irregularly irregular Abdomen: normal bowel sounds, non-tender, soft Extremities: swelling Neuro/Psych: alert, normal mood/affect, oriented x 3 ICD10 Worksheet Patient Problems: Problems Problem Status Onset Congestive cardiac failure Acute Congestive cardiomyopathy Acute Diabetes mellitus Acute Renal insufficiency Acute
--- NOTE | 2019-02-26 12:23 | ASMTCMCOM ---
CM Note CM Note Notes: PT is recommending SNF or home health. OT is recommending SNF. Still early to determine exact d/c needs. Patient had dialysis catheter placed yesterday.Spoke with the family and they would like referrals to [facility] in [place] as their first choice and [facility] and [facility]. Referrals have been made. The family would like to reevaluate closer to discharge as the patient is hoping for home health care. Patient's home has stairs and bedrooms and bathrooms are upstairs. Patient's and daughters think SNF is probably going to be better for him initially. CM will follow. Date Signed: 02/26/2019 12:22 PM Electronically Signed By:La Ryan LCSW
[2019-02-26] MEDS: INSULIN LISPRO 100 UNIT/ML SC SCH ×2 (13:21→18:26)
[2019-02-26] MEDS ORDERED: MIDODRINE HCL 10 MG TAB PO ONE (14:45)
[2019-02-26] MEDS ORDERED: HEPARIN 50,000 UNIT/10 ML VIAL ONE ×2 (15:56→20:28)
--- NOTE | 2019-02-26 17:56 | PDCARPN ---
Cardiology Progress Note Assessment/Plan: Assessment:1. Dilated cardiomyopathy, known CAD suspected ischemic cardiomyopathy. I will have to hold off on cath for now because the creatinine has not improved. Ultimately we may need to cath him with very limited contrast to determine his coronary anatomy. We could probably do that with less than 40 mls of contrast. Plan for dialysis catheter and hemodialysis noted. I spoke with Dr. Larson, and I am concerned that the patient may be slightly over diuresed because he is volume negative as he is still responding to the diuretic by making significant amounts of urine. I am in favor of fluid bolus to improve his blood pressure to get him a little higher on the Pop Starling curve if his blood pressure remains low. 02/26/19 17:49 Reviewed/Discussed With: family, hospitalist, multidisciplinary team Time Spent with Patient: greater than 25 minutes Time Spent with Patient: Greater than 25 minutes spent on this patients care, greater than 50% of time spent counseling, educating, and coordinating care regarding the above mentioned plan. Objective: Vital Signs (8 Hrs) Temp Pulse Resp BP Pulse Ox 02/26/19 14:11 89 18 91/45 L 96 02/26/19 14:04 87 17 84/49 L 95 02/26/19 13:40 16 96/60 L 99 02/26/19 13:00 91 87/69 L 97 02/26/19 11:37 36.4 C 97 19 92/43 L 99 02/26/19 10:30 100 94/52 L 02/26/19 10:20 97 83/42 L Intake/Output (24 Hrs) 02/25/19 02/26/19 02/27/19 05:59 05:59 05:59 Intake Total 1300 700 200 Output Total 3300 1850 Balance -1999 -115 200 Intake: Oral (ml) 1300 700 200 IV Intake (ml) 0 Output: Urine (ml) 3300 1850 Catheter 3300 1850 Other: Intake Quantity Yes Sufficient Output Comment Catheter drg around penis tip changed with cath care Number of Stools Toilet 1 1 Result Diagrams: 02/26/19 04:00 02/26/19 04:00 - Physical Exam Constitutional: other (ill and pale) Eyes: anicteric sclera Ears, Nose, Mouth, Throat: moist mucous membranes Cardiovascular: regular rate and rhythm, jugular vein distention Respiratory: reduced air movement, inspiratory crackles Gastrointestinal: normoactive bowel sounds, no tenderness Neurologic: AAOx3, CN II-XII grossly intact Psychiatric: cooperative, interactive ICD10 Worksheet Patient Problems: Problems Problem Status Onset Congestive cardiomyopathy Acute Congestive cardiac failure Acute Diabetes mellitus Acute Renal insufficiency Acute
[2019-02-26] MEDS: ATORVASTATIN CALCIUM 10 MG TAB PO SCH (20:27)
[2019-02-26] MEDS: traZODone 50 MG TAB PO SCH (20:28)
[2019-02-26] MEDS: INSULIN GLARGINE 100 UNITS/ML UNIT SC SCH (20:33)
[2019-02-27 05:12] LABS: PLATELET COUNT 120 10^3/uL (150-400)
--- NOTE | 2019-02-27 07:24 | SOAPPROG ---
SOAP Progress Note Assessment/Plan: Assessment: 83 yo male with decompensated systolic heart failure and SILVIA. Plan: Acute on chronic renal failure: creat down to 4.4 today, scheduled HD today, bicarb per renal CHF with reduced EF: good UOP with current lasix dose, BP tolerating lasix and carvedilol. Poss cath when kidneys can tolerate due to wall motion abnormalities. Diabetes Mellitus: SSI and lantus Insomnia: Trazodone ZACKARY: not tolerating CPAP well, but will continue to try DVT Prophylaxis: SQ heparin Dispo: inpt 02/26/19 09:02 Acute on chronic renal failure: creat continues to improve, down to 4.1 this morning. HD again today. CHF with reduced EF: hypotensive yesterday after AM lasix. Pressures remain soft though pt is asymptomatic. Per Dr. Ovalles, may need some IVF to get him a little higher on the Pop Starling curve. Will watch pressures this AM. DM: SSI and lantus Insomnia: Trazodone ZACKARY: may need to try xanax to get him to tolerate CPAP, will see how pressures are today and may try this evening DVT prophylaxis: SQ heparin Dispo: inpt, if pressures stable today may transfer to PCU 02/27/19 07:21 Subjective: Resting in bed this morning. Says he feels pretty good this morning. Mild productive cough. No dizziness or lightheadedness with low pressures. Good appetite. Objective: Vital Signs Temp Pulse Resp BP Pulse Ox 36.6 C 80 19 77/47 L 94 02/26/19 19:53 02/27/19 04:00 02/27/19 04:00 02/27/19 04:00 02/27/19 04:00 Laboratory Results 02/27/19 05:08 02/27/19 05:08 02/26/19 02/27/19 02/28/19 05:59 05:59 05:59 Intake Total 700 1000 Output Total 1850 450 Balance -1150 550 Gen- alert, oriented Head- normocephalic, atraumatic EENT- PEERL, EOMI Resp- LCTAB, no wheezing, rhonchi, rales, though breath sounds are distant due to body habitus CV- S1S2, RRR Abd- rounded, SNT Extremities- 2+ peripheral edema Skin- warm and dry ICD10 Worksheet Patient Problems: Problems Problem Status Onset Congestive cardiac failure Acute Congestive cardiomyopathy Acute Diabetes mellitus Acute Renal insufficiency Acute
[2019-02-27] MEDS: APIXABAN 2.5 MG TAB PO SCH ×2 (07:59→21:24)
[2019-02-27] MEDS: CHOLECALCIFEROL VIT D3 1,000 UNITS TAB PO SCH (07:59)
[2019-02-27] MEDS: TAMSULOSIN HCL 0.4 MG CAP PO SCH (07:59)
[2019-02-27] MEDS: CYANO/VITAMIN B12 1000 MCG TAB PO SCH (07:59)
[2019-02-27] MEDS: CARVEDILOL 6.25 MG TAB PO SCH ×2 (07:59→18:11)
[2019-02-27] MEDS: INSULIN LISPRO 100 UNIT/ML SC SCH ×3 (07:59→18:11)
[2019-02-27] MEDS: SODIUM BICARBONATE 650 MG TAB PO SCH ×3 (08:00→21:24)
--- NOTE | 2019-02-27 09:17 | PDCARPN ---
Cardiology Progress Note Chief Complaint: "I don't know why I'm even here, I feel fine" Assessment/Plan: Assessment: 83yo M admitted with acutely decompensated systolic heart failure, LVEF 25% with multiple WMA. Known CAD. Planned coronary angiography, however this is limited by acute renal failure (temporizing with HD currently). Plan: -continue low dose coreg -CHF regimen otherwise limited by ARF as well as hypotension -we'll need to be careful with timing of LHC; likely early in the workweek, but will defer to Dr Ovalles -continue to hold diuretics, he appears euvolemic on my exam 02/27/19 09:16 02/27/19 09:18 Subjective: No acute events. Hypotensive yesterday PM, held coreg; this AM >100 systolic, was able to get his coreg dose. No complaints for me. Cr downtrending, but in light of HD this isn't useful data. He does have clear yellow urine output in morales. Objective: Vital Signs (8 Hrs) Temp Pulse Resp BP Pulse Ox 02/27/19 07:59 98 108/67 02/27/19 07:31 37.0 C 97 18 108/67 98 02/27/19 04:00 80 19 77/47 L 94 Intake/Output (24 Hrs) 02/26/19 02/27/19 02/28/19 05:59 05:59 05:59 Intake Total 700 1000 Output Total 1850 450 Balance -1150 550 Intake: Oral (ml) 700 1000 Output: Urine (ml) 1850 450 Catheter 1850 100 Toilet 350 Other: Intake Quantity Yes Sufficient Number of Stools Toilet 1 1 Result Diagrams: 02/27/19 05:08 02/27/19 05:08 Telemetry: SR, multiform PVCs - Physical Exam Constitutional: no apparent distress Eyes: PERRL, EOMI Ears, Nose, Mouth, Throat: moist mucous membranes Cardiovascular: regular rate and rhythm, no murmurs, no rubs, no gallops Respiratory: clear to auscultate bilat Gastrointestinal: normoactive bowel sounds Skin: no rashes, other (right IJ HD catheter, site OK) Neurologic: AAOx3, CN II-XII grossly intact Psychiatric: cooperative, interactive, following commands ICD10 Worksheet Patient Problems: Problems Problem Status Onset Congestive cardiac failure Acute Congestive cardiomyopathy Acute Diabetes mellitus Acute Renal insufficiency Acute
--- NOTE | 2019-02-27 19:24 | SOAPPROG ---
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 No shortness of breath. Not eating much per nurses. Only 100mL UOP overnight and 100mL during day shift today. Objective: Vital Signs Temp Pulse Resp BP Pulse Ox 36.7 C 96 20 94/56 L 90 L 02/27/19 11:54 02/27/19 18:11 02/27/19 15:21 02/27/19 18:11 02/27/19 15:21 Laboratory Results 02/27/19 05:08 02/27/19 05:08 02/26/19 02/27/19 02/28/19 05:59 05:59 05:59 Intake Total 700 1000 320 Output Total 1850 450 100 Balance -1150 550 220 General Appearance: alert, obese Neck: normal inspection, other (thick), RIJ temp cath Respiratory: CTAB, No rhonchi, No wheezing Cardiac/Chest: trace edema, irregularly irregular Abdomen: normal bowel sounds, non-tender, soft Extremities: swelling Neuro/Psych: alert, normal mood/affect, oriented x 3 ICD10 Worksheet Patient Problems: Problems Problem Status Onset Congestive cardiac failure Acute Congestive cardiomyopathy Acute Diabetes mellitus Acute Renal insufficiency Acute
[2019-02-27] MEDS: INSULIN GLARGINE 100 UNITS/ML UNIT SC SCH (21:24)
[2019-02-27] MEDS: traZODone 50 MG TAB PO SCH (21:25)
[2019-02-27] MEDS: ATORVASTATIN CALCIUM 10 MG TAB PO SCH (21:25)
[2019-02-28] MEDS: INSULIN LISPRO 100 UNIT/ML SC SCH ×3 (07:30→19:05)
[2019-02-28] MEDS: TAMSULOSIN HCL 0.4 MG CAP PO SCH (08:34)
[2019-02-28] MEDS: CARVEDILOL 6.25 MG TAB PO SCH ×2 (08:34→19:05)
[2019-02-28] MEDS: APIXABAN 2.5 MG TAB PO SCH (08:35)
[2019-02-28] MEDS: CYANO/VITAMIN B12 1000 MCG TAB PO SCH (08:35)
[2019-02-28] MEDS: CHOLECALCIFEROL VIT D3 1,000 UNITS TAB PO SCH (08:35)
[2019-02-28] MEDS: SODIUM BICARBONATE 650 MG TAB PO SCH ×2 (08:35→16:36)
--- NOTE | 2019-02-28 09:31 | SOAPPROG ---
SOAP Progress Note Assessment/Plan: Assessment: 83 yo male with decompensated systolic heart failure and SILVIA. Plan: Acute on chronic renal failure: creat down to 4.4 today, scheduled HD today, bicarb per renal CHF with reduced EF: good UOP with current lasix dose, BP tolerating lasix and carvedilol. Poss cath when kidneys can tolerate due to wall motion abnormalities. Diabetes Mellitus: SSI and lantus Insomnia: Trazodone ZACKARY: not tolerating CPAP well, but will continue to try DVT Prophylaxis: SQ heparin Dispo: inpt 02/26/19 09:02 Acute on chronic renal failure: creat continues to improve, down to 4.1 this morning. HD again today. CHF with reduced EF: hypotensive yesterday after AM lasix. Pressures remain soft though pt is asymptomatic. Per Dr. Ovalles, may need some IVF to get him a little higher on the Pop Starling curve. Will watch pressures this AM. DM: SSI and lantus Insomnia: Trazodone ZACKARY: may need to try xanax to get him to tolerate CPAP, will see how pressures are today and may try this evening DVT prophylaxis: SQ heparin Dispo: inpt, if pressures stable today may transfer to PCU 02/27/19 07:21 Acute on chronic renal failure: slight bump today in creat up to 5.0 this AM, HD this morning CHF with reduced EF: pressure better yesterday afternoon and over night. Hoping for cath this week, cards to determine timing DM: SSI and lantus Insomnia: Trazodone ZACKARY: prn xanax for CPAP DVT prophylaxis: SQ heparin Dispo: okay to transfer to PCU if stable hemodynamically after HD 02/28/19 09:27 Subjective: Duane is up in the chair this morning. Went for a walk around the ICU this morning, which is the furthest he has walked in about a week. Feeling okay. Objective: Vital Signs Temp Pulse Resp BP Pulse Ox 37.1 C 94 21 H 108/62 98 02/28/19 07:26 02/28/19 08:34 02/28/19 07:26 02/28/19 08:34 02/28/19 07:26 Laboratory Results 02/27/19 05:08 02/28/19 04:14 02/27/19 02/28/19 03/01/19 05:59 05:59 05:59 Intake Total 1000 520 Output Total 450 250 Balance 550 270 gen- alert, oriented head- normocephalic, atraumatic resp- lctab, no wheezing, rhonchi, rales cv- distant, s1s2, rrr abd- rounded, snt extremities- 2+ pitting edema skin- warm and dry ICD10 Worksheet Patient Problems: Problems Problem Status Onset Congestive cardiac failure Acute Congestive cardiomyopathy Acute Diabetes mellitus Acute Renal insufficiency Acute
--- NOTE | 2019-02-28 12:15 | ASMTCMCOM ---
CM Note CM Note Notes: I spoke with hospital admissions clerk at [facility] regarding their needs from us re: patient's referral. Per Cj, if patient will need outpatient HD, they need us to set it up before discharge. Facilities near the SNF include [facility] and [facility] (both in [place]). They also need more PT notes from us, which I am waiting on (only OT saw patient today). [facility] in [place] has also accepted; their requests for HD are the same as above but for a facility near [place]. Patient/family have a palliative care conference scheduled for tomorrow, Friday, 03/01 @ 1100. Case Management will follow. Date Signed: 02/28/2019 12:14 PM Electronically Signed By:Geri Lozada RN
[2019-02-28] MEDS ORDERED: HEPARIN 50,000 UNIT/10 ML VIAL ONE (14:46)
[2019-02-28] MEDS ORDERED: CEPACOL LOZENGE PO PRN (15:24)
--- NOTE | 2019-02-28 18:03 | SOAPPROG ---
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 I do not expect renal function to turn around quickly. Discussed tunneled dialysis catheter. Put Apixiban on hold in preparation for tunneled dialysis catheter placement ( will need to be resumed after it is placed) Will need to start working on outpatient HD arrangements on Friday D/c'ed sodium bicarb tablets 02/28/19 18:03 02/28/19 18:03 Subjective: Feeling fine. No shortness of breath. UOP even less. Objective: Vital Signs Temp Pulse Resp BP Pulse Ox 36.6 C 92 18 94/58 L 99 02/28/19 17:51 02/28/19 17:51 02/28/19 17:51 02/28/19 17:51 02/28/19 17:51 Laboratory Results 02/27/19 05:08 02/28/19 04:14 02/27/19 02/28/19 03/01/19 05:59 05:59 05:59 Intake Total 1000 520 177 Output Total 058 993 6800 Balance 550 270 -1373 General Appearance: alert, obese Neck: normal inspection, other (thick), RIJ temp cath Respiratory: CTAB, No rhonchi, No wheezing Cardiac/Chest: 0-trace edema, irregularly irregular Abdomen: normal bowel sounds, non-tender, soft Extremities: swelling Neuro/Psych: alert, normal mood/affect, oriented x 3 ICD10 Worksheet Patient Problems: Problems Problem Status Onset Congestive cardiac failure Acute Congestive cardiomyopathy Acute Diabetes mellitus Acute Renal insufficiency Acute
[2019-02-28] MEDS: traZODone 50 MG TAB PO SCH (21:36)
[2019-02-28] MEDS: ATORVASTATIN CALCIUM 10 MG TAB PO SCH (21:36)
[2019-02-28] MEDS: INSULIN GLARGINE 100 UNITS/ML UNIT SC SCH (21:45)
[2019-03-01] MEDS: INSULIN LISPRO 100 UNIT/ML SC SCH ×3 (08:06→18:09)
[2019-03-01] MEDS: CHOLECALCIFEROL VIT D3 1,000 UNITS TAB PO SCH (08:43)
[2019-03-01] MEDS: TAMSULOSIN HCL 0.4 MG CAP PO SCH (08:44)
[2019-03-01] MEDS: CARVEDILOL 6.25 MG TAB PO SCH ×2 (08:44→18:24)
[2019-03-01] MEDS: CYANO/VITAMIN B12 1000 MCG TAB PO SCH (08:44)
--- NOTE | 2019-03-01 08:50 | SOAPPROG ---
SOAP Progress Note Assessment/Plan: Assessment: Plan: 02/25/19 08:50 SILVIA on CKD, appreciate renal input. Chest catheter today, Cr stable CHF with reduced EF, diuresis is good. BP fair. Tolerating higher dose of coreg Reduced EF with wall motion irregularities, poss cath DM--continue SSI insomnia--increase trazodone probable ZACKARY, continue work with CPAP 03/01/19 08:48 CHF with reduced EF and wall motion abn's. How much is CAD induced vs CHF from htn/CKD is to be determined. SILVIA on CKD--tunneled HD catheter today lower BP--stable leg weakness likely due to reduced EF DM stable insomnia with ZACKARY -- ongoing challenge Subjective: Duane is feeling ok. Not sleeping all that well. He states his legs felt very heavy while walking with PT this am. This was his first walk without a walker and he found it much harder. + SOB at end of the exercise, no CP. He has some lateral hip/thigh pain, but did not feel it got more intense with walking. No change in edema. Minimal lightheadedness Objective: Vital Signs Temp Pulse Resp BP Pulse Ox 36.8 C 93 16 91/62 L 100 03/01/19 07:22 03/01/19 07:22 03/01/19 07:22 03/01/19 07:22 03/01/19 07:22 Laboratory Results 02/27/19 05:08 03/01/19 04:50 02/28/19 03/01/19 03/02/19 05:59 05:59 05:59 Intake Total 520 527 Output Total 250 1700 Balance 270 -1173 ICD10 Worksheet Patient Problems: Problems Problem Status Onset Congestive cardiac failure Acute Congestive cardiomyopathy Acute Diabetes mellitus Acute Renal insufficiency Acute
--- NOTE | 2019-03-01 11:01 | PDCARPN ---
Cardiology Progress Note Chief Complaint: edema/SOB Assessment/Plan: Assessment: HF ESRD Plan: 03/01/19 10:59 hold Ac tx Plan for RHC/LHC when HD catheter placed (possibly 03/02 or 03/03) Stable CV status Continue with current tx Subjective: stable, no new SOB Reviewed/Discussed With: multidisciplinary team Time Spent with Patient: greater than 25 minutes Time Spent with Patient: Greater than 25 minutes spent on this patients care, greater than 50% of time spent counseling, educating, and coordinating care regarding the above mentioned plan. Objective: Vital Signs (8 Hrs) Temp Pulse Resp BP Pulse Ox 03/01/19 08:44 93 99/50 L 03/01/19 07:22 36.8 C 93 16 91/62 L 100 03/01/19 04:00 36.8 C 99 14 98/82 H 96 Intake/Output (24 Hrs) 02/28/19 03/01/19 03/02/19 05:59 05:59 05:59 Intake Total 520 527 Output Total 250 1700 Balance 270 -1173 Intake: Oral (ml) 520 527 Output: Urine (ml) 250 200 Catheter 250 200 Dialysis Fluid Removed 1500 Other: Weight 123.4 kg Intake Quantity Transferred from ICU at 1750 Sufficient Result Diagrams: 02/27/19 05:08 03/01/19 04:50 - Physical Exam Constitutional: no apparent distress Eyes: PERRL Ears, Nose, Mouth, Throat: moist mucous membranes Cardiovascular: regular rate and rhythm, systolic murmur Peripheral Pulses: 1+: femoral (R), femoral (L) Respiratory: reduced air movement Gastrointestinal: normoactive bowel sounds Genitourinary: no suprapubic tenderness Skin: no rashes Musculoskeletal: no muscular tenderness Neurologic: AAOx3 Psychiatric: cooperative ICD10 Worksheet Patient Problems: Problems Problem Status Onset Congestive cardiac failure Acute Congestive cardiomyopathy Acute Diabetes mellitus Acute Renal insufficiency Acute
--- NOTE | 2019-03-01 11:46 | SOAPPROG ---
SOAP Progress Note Assessment/Plan: Assessment/Plan: 83 y/o M with a known h/o DM, HTN, and CKD IV who presented with volume overload and SILVIA now on dialysis. CKD IV now ESRD -last HD on 02/27, plan for HD tomorrow -has temp cath currently on elaq and will need to be off 2 days for TDC -will need CM for outpatient dialysis placement HTN/vol -may continue bumex if making UO -new echo shows EF 25% -cards planning for RHC/LHC tomorrow or Friday -on BB Anemia -Hb at goal, hold EPO BMD -renal diet -check phos 03/01/19 11:47 Subjective: BP's soft this am. Tolerated HD on Friday. Starting placement discussion. Objective: Vital Signs Temp Pulse Resp BP Pulse Ox 36.8 C 93 16 99/50 L 100 03/01/19 07:22 03/01/19 08:44 03/01/19 07:22 03/01/19 08:44 03/01/19 07:22 Laboratory Results 02/27/19 05:08 03/01/19 04:50 02/28/19 03/01/19 03/02/19 05:59 05:59 05:59 Intake Total 520 527 Output Total 250 1700 Balance 270 -1173 Physical Exam - Physical Exam General Appearance: WD/WN, alert EENT: PERRL/EOMI Neck: non-tender, supple Respiratory: decreased breath sounds, crackles Cardiac/Chest: edema, JVD Abdomen: normal bowel sounds, non-tender, soft Skin: pallor Extremities: normal range of motion, pedal edema, swelling Neuro/Psych: alert, normal mood/affect, oriented x 3 ICD10 Worksheet Patient Problems: Problems Problem Status Onset Congestive cardiac failure Acute Congestive cardiomyopathy Acute Diabetes mellitus Acute Renal insufficiency Acute
--- NOTE | 2019-03-01 14:10 | ASMTCMCOM ---
CM Note CM Note Notes: Earnest and Emma met w/ pt and family for a palliative this AM. Pt and family are interested in a referral to [facility]. Referral sent. CM met w/ pt and for dispo planning. They believe the earliest that they can d/c is on Friday. CM sent the referral for HD at [facility]. CM spoke to Kylie at [facility] (P#: [phone], F#: [phone]). Dr. Millard will follow this case in the community. Pt and family are uncertain about going to [facility]. They initally wanted that to be their first choice because their daughter in law works there. They are realizing now that it might be difficult for friends/ to get up to [facility]. Pt and are interested in [facility]. PT is recommending HC as of today. OT will sokaogon back to see pt. OT unable to see pt today because pt was having a palliative. CM to follow therapies recommendations to see how pt progresses. CM to follow. Date Signed: 03/01/2019 02:10 PM Electronically Signed By:ISMA Rangel
[2019-03-01] MEDS: INSULIN GLARGINE 100 UNITS/ML UNIT SC SCH (21:58)
[2019-03-01] MEDS: traZODone 50 MG TAB PO SCH (21:58)
[2019-03-01] MEDS: ATORVASTATIN CALCIUM 10 MG TAB PO SCH (21:58)
--- NOTE | 2019-03-02 07:52 | PDCARPN ---
Cardiology Progress Note Chief Complaint: SOB Assessment/Plan: Assessment: HF ESRD Plan: 03/01/19 10:59 hold Ac tx Plan for RHC/LHC when HD catheter placed (possibly 03/02 or 03/03) Stable CV status Continue with current tx 03/02/19 07:51 plan for dialysis today cath on 03/03 if no new changes continue current tx Subjective: stable Reviewed/Discussed With: multidisciplinary team Time Spent with Patient: greater than 25 minutes Time Spent with Patient: Greater than 25 minutes spent on this patients care, greater than 50% of time spent counseling, educating, and coordinating care regarding the above mentioned plan. Objective: Vital Signs (8 Hrs) Temp Pulse Resp BP Pulse Ox 03/02/19 07:09 36.6 C 85 12 86/52 L 99 03/02/19 04:00 36.5 C 84 20 82/44 L 99 Intake/Output (24 Hrs) 03/01/19 03/02/19 03/03/19 05:59 05:59 05:59 Intake Total 527 480 Output Total 1700 100 Balance -1173 380 Intake: Oral (ml) 527 480 Output: Urine (ml) 200 100 Catheter 200 100 Dialysis Fluid Removed 1500 Other: Weight 123.4 kg 123.785 kg Intake Quantity Transferred from ICU at 1750 Sufficient Result Diagrams: 02/27/19 05:08 03/02/19 06:25 - Physical Exam Constitutional: no apparent distress Eyes: PERRL Ears, Nose, Mouth, Throat: moist mucous membranes Cardiovascular: regular rate and rhythm Peripheral Pulses: 1+: femoral (R), femoral (L) Respiratory: clear to auscultate bilat Gastrointestinal: normoactive bowel sounds Genitourinary: no suprapubic tenderness Skin: no rashes Musculoskeletal: no muscular tenderness Neurologic: AAOx3 Psychiatric: cooperative ICD10 Worksheet Patient Problems: Problems Problem Status Onset Congestive cardiac failure Acute Congestive cardiomyopathy Acute Diabetes mellitus Acute Renal insufficiency Acute
[2019-03-02] MEDS: TAMSULOSIN HCL 0.4 MG CAP PO SCH (08:47)
[2019-03-02] MEDS: CYANO/VITAMIN B12 1000 MCG TAB PO SCH (08:47)
[2019-03-02] MEDS: CARVEDILOL 6.25 MG TAB PO SCH (08:47)
[2019-03-02] MEDS: CHOLECALCIFEROL VIT D3 1,000 UNITS TAB PO SCH (08:48)
[2019-03-02] MEDS: INSULIN LISPRO 100 UNIT/ML SC SCH ×3 (09:28→22:00)
--- NOTE | 2019-03-02 09:49 | SOAPPROG ---
SOAP Progress Note Assessment/Plan: Assessment: 83 yo male with decompensated systolic heart failure and SILVIA. Plan: Acute on chronic renal failure: creat down to 4.4 today, scheduled HD today, bicarb per renal CHF with reduced EF: good UOP with current lasix dose, BP tolerating lasix and carvedilol. Poss cath when kidneys can tolerate due to wall motion abnormalities. Diabetes Mellitus: SSI and lantus Insomnia: Trazodone ZACKARY: not tolerating CPAP well, but will continue to try DVT Prophylaxis: SQ heparin Dispo: inpt 02/26/19 09:02 Acute on chronic renal failure: creat continues to improve, down to 4.1 this morning. HD again today. CHF with reduced EF: hypotensive yesterday after AM lasix. Pressures remain soft though pt is asymptomatic. Per Dr. Ovalles, may need some IVF to get him a little higher on the Pop Starling curve. Will watch pressures this AM. DM: SSI and lantus Insomnia: Trazodone ZACKARY: may need to try xanax to get him to tolerate CPAP, will see how pressures are today and may try this evening DVT prophylaxis: SQ heparin Dispo: inpt, if pressures stable today may transfer to PCU 02/27/19 07:21 Acute on chronic renal failure: slight bump today in creat up to 5.0 this AM, HD this morning CHF with reduced EF: pressure better yesterday afternoon and over night. Hoping for cath this week, cards to determine timing DM: SSI and lantus Insomnia: Trazodone ZACKARY: prn xanax for CPAP DVT prophylaxis: SQ heparin Dispo: okay to transfer to PCU if stable hemodynamically after HD 02/28/19 09:27 Acute on chronic renal failure: tunneled cath to be placed today, HD scheduled CHF with reduced EF: planned L/R cath for tomorrow Dispo: d/c home with home health once stable and ready for d/c, hopefully in a few days 03/02/19 09:47 Subjective: Duane is resting in the chair this morning. Says he feels pretty well. Has been ambulating around the floor. Objective: Vital Signs Temp Pulse Resp BP Pulse Ox 36.6 C 85 12 86/52 L 99 03/02/19 07:09 03/02/19 07:09 03/02/19 07:09 03/02/19 07:09 03/02/19 07:09 Laboratory Results 02/27/19 05:08 03/02/19 06:25 03/01/19 03/02/19 03/03/19 05:59 05:59 05:59 Intake Total 527 480 Output Total 1700 100 Balance -1173 380 Gen- alert, oriented Head- normocephalic, atraumatic Resp- LCTAB, distant breath sounds CV- S1S2, RRR Abd- rounded, SNT Extremities- 2+ ble edema Skin- warm and dry ICD10 Worksheet Patient Problems: Problems Problem Status Onset Congestive cardiac failure Acute Congestive cardiomyopathy Acute Diabetes mellitus Acute Renal insufficiency Acute
--- NOTE | 2019-03-02 12:46 | SOAPPROG ---
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 -SPEP neg M spike -FDOD 02/25/19 -HD again today with IR to place TDC afterwards (anticoag on hold)-- running HD on TTS schedule -working on outpt HD-- wants to go to [facility] #CHF LVEF 25%, grade 2 diastolic dysfunction, mild RV dysfunction -volume overloaded-- improved -cardiology following- plans for R and L cath soon (i have discussed risk of contrast with pt and willing to proceed) #anemia CKD -SPEP no m spike. Free light chains ratio ok -hb at goal, not on SARAH BETH #MBD of CKD -phos at goal #DM2 Lora Rubio MD [facility] pager [phone] 03/02/19 12:47 Subjective: Seen on dialysis at 12:30. Using RIJ temp cath with goal Qb 350 (was only on 210 when I came by due to catheter malfunction), 3K/2.5Ca bath, goal UF 1kg. Feeling much better since I last saw him. Denies sob. n/v. For TDC later today by IR. Discussed outpt HD with him. Objective: Vital Signs Temp Pulse Resp BP Pulse Ox 36.6 C 85 12 86/52 L 99 03/02/19 07:09 03/02/19 07:09 03/02/19 07:09 03/02/19 07:09 03/02/19 07:09 Laboratory Results 02/27/19 05:08 03/02/19 06:25 03/01/19 03/02/19 03/03/19 05:59 05:59 05:59 Intake Total 527 480 Output Total 1700 100 Balance -1173 380 Physical Exam - Physical Exam General Appearance: alert, no apparent distress EENT: other (mmm) Neck: other (RIJ temp HD cath) Respiratory: lungs clear Cardiac/Chest: regular rate, rhythm Abdomen: non-tender, soft Skin: warm/dry Extremities: other (trace edema bilat LE) Neuro/Psych: alert, oriented x 3 ICD10 Worksheet Patient Problems: Problems Problem Status Onset Congestive cardiac failure Acute Congestive cardiomyopathy Acute Diabetes mellitus Acute Renal insufficiency Acute
[2019-03-02] MEDS ORDERED: HEPARIN 5,000 UNIT/0.5 ML INJ ONE (14:45)
[2019-03-02] MEDS ORDERED: GLUCAGON HCL 1 MG VIAL IVP PRN (16:26)
[2019-03-02] MEDS ORDERED: ceFAZolin 2 GM/DEXTROSE 100 ML IV ONE (16:26)
[2019-03-02] MEDS ORDERED: MEPERIDINE 25 MG/ML SYR IVP PRN (16:26)
[2019-03-02] MEDS ORDERED: PROTAMINE SULFATE 50 MG/5 ML VIAL IVP PRN (16:26)
[2019-03-02] MEDS ORDERED: MIDAZOLAM 2 MG/2 ML VIAL IVP PRN (16:26)
[2019-03-02] MEDS ORDERED: ALTEPLASE 2 MG VIAL IVP PRN (16:26)
[2019-03-02] MEDS ORDERED: fentaNYL 100 MCG/2 ML INJ IVP PRN (16:26)
[2019-03-02] MEDS ORDERED: FLUMAZENIL 0.5 MG/5 ML MDV IVP PRN (16:26)
[2019-03-02] MEDS ORDERED: HEPARIN 10,000 UNIT/10 ML MDV (1,000 UNIT/ML) IVP PRN (16:26)
[2019-03-02] MEDS ORDERED: NALOXONE HCL 0.4 MG/ML INJ IVP PRN (16:26)
[2019-03-02] MEDS ORDERED: NS 1,000 ML IV SCH (16:30)
[2019-03-02] MEDS ORDERED: LIDO/EPI 1% **for epidural** 30 ML SDV ONE (17:49)
--- NOTE | 2019-03-02 18:08 | PDHPUP ---
History & Physical Update H&P update statement: This history and physical update is based on an assessment of the patient which was completed after admission or registration (within 24 hours), but prior to the surgery/procedure. ESRD conversion from temp to tunneled HD catheter H&P update: H&P reviewed & patient examined, no change in patient's condition since H&P completed
--- NOTE | 2019-03-02 18:09 | PDRADPN ---
Radiology Procedure Note Date of Procedure: 03/02/19 Radiologist: [facility] Anesthesia: IV Sedation Pre-op Diagnosis: ESRD Post-op Diagnosis: ESRD Indication: ESRD Procedure: Temp to tunneled conversion HD catheter Finding(s): 23 cm tip to cuff length HD catheter placed. Inf/Abcess present in the surg proc area at time of surgery?: No
--- NOTE | 2019-03-02 18:09 | PDPROPOC ---
Sedation Plan of Care Sedation Plan of Care: vital signs stable, mental status noted, patient educated of risks, benefits, alternatives, patient can tolerate sedation ASA Classification: ASA 3 Planned drugs: fentanyl, midazolam Mallampati Score: Class 3 Mallampati Reference Image: Patient passed 3-3-2 rule?: Yes
[2019-03-02] MEDS: traZODone 50 MG TAB PO SCH (20:16)
[2019-03-02] MEDS: ATORVASTATIN CALCIUM 10 MG TAB PO SCH (20:16)
[2019-03-02] MEDS: INSULIN GLARGINE 100 UNITS/ML UNIT SC SCH (22:28)
[2019-03-03] MEDS: CARVEDILOL 6.25 MG TAB PO SCH ×3 (00:19→17:33)
[2019-03-03] MEDS ORDERED: ACETAMINOPHEN 325 MG TAB PO PRN (07:11)
[2019-03-03] MEDS ORDERED: NITROGLYCERIN 0.4 MG BTL SL PRN (07:11)
--- NOTE | 2019-03-03 07:13 | PDCARPN ---
Cardiology Progress Note Chief Complaint: SOB Assessment/Plan: Assessment: HF ESRD Plan: 03/01/19 10:59 hold Ac tx Plan for RHC/LHC when HD catheter placed (possibly 03/02 or 03/03) Stable CV status Continue with current tx 03/02/19 07:51 plan for dialysis today cath on 03/03 if no new changes continue current tx 03/03/19 07:12 stable plan for RHC/LHC today explained risks of procedure, pt would like to proceed NPO Subjective: stable Reviewed/Discussed With: multidisciplinary team Time Spent with Patient: greater than 25 minutes Time Spent with Patient: Greater than 25 minutes spent on this patients care, greater than 50% of time spent counseling, educating, and coordinating care regarding the above mentioned plan. Objective: Vital Signs (8 Hrs) Temp Pulse Resp BP Pulse Ox 03/03/19 03:47 36.6 C 99 16 96/76 L 94 03/02/19 23:34 36.6 C 89 16 90/57 L 99 Intake/Output (24 Hrs) 03/02/19 03/03/19 03/04/19 05:59 05:59 05:59 Intake Total 480 450 Output Total 100 100 Balance 380 350 Intake: Oral (ml) 480 250 IV Intake (ml) 200 Output: Urine (ml) 100 100 Catheter 100 Toilet 100 Other: Weight 123.785 kg 123.241 kg Number of Voids Toilet 1 Bladder Scan Volume (ml) Toilet 14 Result Diagrams: 02/27/19 05:08 03/03/19 03:45 - Physical Exam Constitutional: no apparent distress Eyes: PERRL Ears, Nose, Mouth, Throat: moist mucous membranes Cardiovascular: irregularly irregular Peripheral Pulses: 1+: femoral (R), femoral (L) Respiratory: reduced air movement Gastrointestinal: normoactive bowel sounds Genitourinary: no suprapubic tenderness Skin: no rashes Musculoskeletal: no muscular tenderness Neurologic: AAOx3 ICD10 Worksheet Patient Problems: Problems Problem Status Onset Congestive cardiac failure Acute Congestive cardiomyopathy Acute Diabetes mellitus Acute Renal insufficiency Acute
[2019-03-03 07:56] LABS: PLATELET COUNT 132 10^3/uL (150-400)
[2019-03-03] MEDS ORDERED: LIDOCAINE 1% 300 MG/30 ML SDV ONE (07:57)
[2019-03-03] MEDS ORDERED: MIDAZOLAM 2 MG/2 ML VIAL ONE (07:57)
[2019-03-03] MEDS ORDERED: fentaNYL 100 MCG/2 ML INJ ONE (07:57)
[2019-03-03] MEDS ORDERED: IOPAMIDOL (ISOVUE-370) 150 ML BTL IV ONE (07:58)
--- NOTE | 2019-03-03 08:01 | PDHPUP ---
History & Physical Update H&P update statement: This history and physical update is based on an assessment of the patient which was completed after admission or registration (within 24 hours), but prior to the surgery/procedure. H&P update: H&P reviewed & patient examined, no change in patient's condition since H&P completed
--- NOTE | 2019-03-03 08:02 | PDPROPOC ---
Sedation Plan of Care Sedation Plan of Care: mental status noted, patient educated of risks, benefits , alternatives, patient can tolerate sedation ASA Classification: ASA 2 Planned drugs: fentanyl, midazolam Mallampati Score: Class 2 Mallampati Reference Image: Patient passed 3-3-2 rule?: Yes
[2019-03-03 08:16] LABS: INR 1.08 (0.83-1.16); PROTIME(PATIENT) 13.6 SEC (12.0-15.0)
[2019-03-03] MEDS: INSULIN LISPRO 100 UNIT/ML SC SCH ×3 (09:46→17:33)
--- NOTE | 2019-03-03 09:56 | CPIP ---
[f rep st] INVASIVE CARDIAC PROCEDURE DATE OF PROCEDURE: 03/03/2019 INDICATION FOR PROCEDURE: Heart failure. PROCEDURES: 1. Nonselective right groin sheathogram. 2. 7-Argentine sheath to the right common femoral vein. 3. Right heart catheterization with [place] catheter. 4. Bilateral coronary angiography. 5. Left heart catheterization. 6. Left ventriculogram. INDICATION: Briefly, this is an 83-year-old male with a history of history of recent heart failure, worsening renal function. Given these findings, the patient consented for right and left heart malik terization. DESCRIPTION OF PROCEDURE: After informed consent, the patient was brought to [facility] where the right groin was prepped and draped in a sterile fashion using lidocaine. A short 6-Frenc h sheath in the right common femoral artery verified angiographically. A 7-Argentine sheath in the [facility] t common femoral vein. [place] catheter was advanced. Wedge pressure was a mean of 21, A-wave 27, V-wave 32, PA pressure systolic 55, diastolic 10, mean of 29. RV pressure systolic 47, diastolic 8, end of 14. RA pressure mean of 11, A-wave 17, V-wave 15. Cardiac output was 6.7, with an index of 2.8. AO sat was 96%. PA sat was 65%. [place] catheter was then removed. A JL4 catheter was then advanced in the left coronary artery. Images of the left coronary artery revealed normal left main. Left circumflex artery gave tiny branches proximally with large marginal branches distally which we re healthy and free of disease. LAD was a long vessel which wrapped around the apex. The LAD gave o ff a medium to large diagonal artery in its midportion, which was healthy and free of disease. The L AD distally was a thin vessel but was healthy and free of disease. There appeared to be 30% disease in the mid LAD with a possible bridging segment distal. After these were images were obtained, the J L4 catheter was removed. A The JR4 catheter was advanced to the right coronary artery. Images of th e right coronary artery revealed normal mid RCA. Distally, the RPLS and RPDA appeared to b e widely patent. The JR4 catheter was removed. The pigtail catheter was advanced to the left ventri janina. EDP is 25 mmHg. Left ventricular in the THOMAS projection showed an EF of approximately 25% to 30 % with severe global LV dysfunction. No pullback gradient between the LV and the aorta. Pigtail cat heter was removed over a 0.035 wire. Right groin was closed with 6-Argentine Angio-Seal. The 7-Argentine sheath was removed with manual pressure. Patient tolerated the procedure well with no complications. IMPRESSION: 1. Essentially minimal coronary artery disease with mild 20% to 30% mid LAD disease. 2. Severely reduced global ejection fraction. 3. Moderate pulmonary hypertension. 4. Normal cardiac output. PLAN: The patient has a nonischemic cardiomyopathy. Continue with aggressive medical therapy and in stitute Coreg SKYLAR inhibitor if okay with Nephrology. Additionally, the patient can restart his Eliqu is. Further orders following clinical course. /[id number]/MODL
--- NOTE | 2019-03-03 12:16 | SOAPPROG ---
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 -SPEP neg M spike -FDOD 02/25/19, IR placed TDC 03/02/19 -HD again tomorrow -working on outpt HD-- has spot MWF at [facility] and confirming start date (hoping for Friday-- he could d/c tomorrow from our standpoint if this is case and has SNF/transportation arranged-- I discussed with case management) #CHF LVEF 25%, grade 2 diastolic dysfunction, mild RV dysfunction -volume overloaded-- improved -cardiology following- cath 03/03 with non-ischemic cardiomyopathy, no intervention, +pulm HTN -ok for low dose adilene inhib as BP allows from our standpoint #anemia CKD -SPEP no m spike. 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 Had cath with no significant obstructive disease noted , no interventions (felt non-ischemic cardiomyopathy). No sob. Wants to go home. Bedroom on 2nd floor and family worried about his ability to do stairs. Objective: Vital Signs Temp Pulse Resp BP Pulse Ox 36.6 C 91 14 95/62 L 98 03/03/19 11:46 03/03/19 11:46 03/03/19 11:46 03/03/19 11:46 03/03/19 11:46 Laboratory Results 03/03/19 07:45 03/03/19 07:45 03/02/19 03/03/19 03/04/19 05:59 05:59 05:59 Intake Total 480 450 Output Total 100 100 Balance 380 350 PT 13.6 SEC (12.0-15.0) 03/03/19 07:45 INR 1.08 (0.83-1.16) 03/03/19 07:45 Physical Exam - Physical Exam General Appearance: alert, no apparent distress EENT: other (mmm) Neck: supple, other (RIJ TDC) Respiratory: lungs clear Cardiac/Chest: regular rate, rhythm, other (no rub) Abdomen: normal bowel sounds, non-tender, soft Extremities: other (trace LE edema bilat, improved) Neuro/Psych: alert, oriented x 3 ICD10 Worksheet Patient Problems: Problems Problem Status Onset Congestive cardiac failure Acute Congestive cardiomyopathy Acute Diabetes mellitus Acute Renal insufficiency Acute
--- NOTE | 2019-03-03 13:12 | SOAPPROG ---
SOAP Progress Note Assessment/Plan: Assessment: Plan: 02/25/19 08:50 SILVIA on CKD, appreciate renal input. Chest catheter today, Cr stable CHF with reduced EF, diuresis is good. BP fair. Tolerating higher dose of coreg Reduced EF with wall motion irregularities, poss cath DM--continue SSI insomnia--increase trazodone probable ZACKARY, continue work with CPAP 03/01/19 08:48 CHF with reduced EF and wall motion abn's. How much is CAD induced vs CHF from htn/CKD is to be determined. SILVIA on CKD--tunneled HD catheter today lower BP--stable leg weakness likely due to reduced EF DM stable insomnia with ZACKARY -- ongoing challenge 03/03/19 13:10 CHF with reduced EF, not due to CAD--will add ACEI at 2.5 mg of lisinopril. On coreg 6.25 mg BID will follow BP closely. Bedside BP 130's while talking. CKD--HD TIW as per renal, has tunneled catheter DM--stable Rehab--ok to transfer from an IM standpoint. Will need HD as part of rehab, [facility] would be patient's preference. Subjective: Duane feels ok. No acute complaints. Admittedly a bit unsure of the future, meds, dialysis, and diet. Wants to continue for now. Objective: Vital Signs Temp Pulse Resp BP Pulse Ox 36.6 C 91 14 95/62 L 98 03/03/19 11:46 03/03/19 11:46 03/03/19 11:46 03/03/19 11:46 03/03/19 11:46 Laboratory Results 03/03/19 07:45 03/03/19 07:45 03/02/19 03/03/19 03/04/19 05:59 05:59 05:59 Intake Total 480 450 Output Total 100 100 Balance 380 350 PT 13.6 SEC (12.0-15.0) 03/03/19 07:45 INR 1.08 (0.83-1.16) 03/03/19 07:45 Gen: NAD Lungs: some coughing after eating, o/w clear Heart: RRR Abd + bs soft LE's no edema Cr 5.4 Hgb 9.7 Cath today EF 20-25% no flow limiting disease, elevated right pressures ICD10 Worksheet Patient Problems: Problems Problem Status Onset Congestive cardiac failure Acute Congestive cardiomyopathy Acute Diabetes mellitus Acute Renal insufficiency Acute
[2019-03-03] MEDS: CYANO/VITAMIN B12 1000 MCG TAB PO SCH (13:43)
[2019-03-03] MEDS: CHOLECALCIFEROL VIT D3 1,000 UNITS TAB PO SCH (13:43)
[2019-03-03] MEDS: LISINOPRIL 2.5 MG TAB PO SCH (13:43)
[2019-03-03] MEDS: TAMSULOSIN HCL 0.4 MG CAP PO SCH (13:43)
--- NOTE | 2019-03-03 16:31 | ASMTCMCOM ---
CM Note CM Note Notes: Pts case discussed in tx rounds. CM spoke to viral Paulino/ nephrology. She reports that pt can d/c tomorrow the earliest if pt has a d/c plan. CM met w/ pt and . They are hoping to d/c to a rehab. Christine from [facility] stopped by. [facility] to dialysis at [facility]. JOANNE spoke to pts sister Karley in person. Karley will go tour [facility] today. Karley has been to [facility] and thinks that it is a nice facility. Karley is thinking that they will most likely choose [facility] since pts family mainly live in [place]. Karley reports that the [facility] facility is off the table because it is so far. JOANNE spoke to Lindsay at [facility]. She will get back to JOANNE to see if they can bring pt to dialysis. JOANNE spoke to Kylie at [facility] (P#: [phone]). Kylie will check in to see if pt can come on Friday if pt is able to d/c to a SNF tomorrow. CM to follow. Plan: SNF w/ HD outpatient Date Signed: 03/03/2019 04:30 PM Electronically Signed By:ISMA Rangel
--- NOTE | 2019-03-03 16:45 | ASMTCMCOM ---
CM Note CM Note Notes: CM spoke to pts daughter Santos (P#: [phone]). Natalia would like a referral made to [facility]. CM sent referral and completed non triggering pasrr. CM asked [facility] if they would be able to bring pt to [facility]. Natalia reports that she will be in tomorrow around 11AM. CM to follow. Date Signed: 03/03/2019 04:44 PM Electronically Signed By:ISMA Rangel
[2019-03-03] MEDS: ATORVASTATIN CALCIUM 10 MG TAB PO SCH (19:50)
[2019-03-03] MEDS: INSULIN GLARGINE 100 UNITS/ML UNIT SC SCH (21:29)
[2019-03-03] MEDS: traZODone 50 MG TAB PO SCH (21:29)
[2019-03-03] MEDS ORDERED: NS 100 ML IV PRN (21:29)
[2019-03-03] MEDS: APIXABAN 2.5 MG TAB PO SCH (21:29)
--- NOTE | 2019-03-04 06:54 | PDCARPN ---
Cardiology Progress Note Chief Complaint: SOB Assessment/Plan: Assessment: HF ESRD Plan: 03/01/19 10:59 hold Ac tx Plan for RHC/LHC when HD catheter placed (possibly 03/02 or 03/03) Stable CV status Continue with current tx 03/02/19 07:51 plan for dialysis today cath on 03/03 if no new changes continue current tx 03/03/19 07:12 stable plan for RHC/LHC today explained risks of procedure, pt would like to proceed NPO 03/04/19 06:52 stable cors essentially normal EF reduced- non-ischemic cardiomyopathy continue ACEi/BB as tolerated OK from CV perspective to d/c (as long as as on dialysis schedule) will f/u as outpatient Subjective: stable Reviewed/Discussed With: multidisciplinary team Time Spent with Patient: greater than 25 minutes Time Spent with Patient: Greater than 25 minutes spent on this patients care, greater than 50% of time spent counseling, educating, and coordinating care regarding the above mentioned plan. Objective: Vital Signs (8 Hrs) Temp Pulse Resp BP Pulse Ox 03/04/19 04:00 36.6 C 90 16 87/52 L 96 03/03/19 23:25 36.4 C 80 16 81/39 L 95 Intake/Output (24 Hrs) 03/03/19 03/04/19 03/05/19 05:59 05:59 05:59 Intake Total 450 300 Output Total 100 100 Balance 350 200 Intake: Oral (ml) 250 300 IV Intake (ml) 200 Output: Urine (ml) 100 100 Toilet 100 100 Other: Weight 123.241 kg 123.8 kg Number of Voids Toilet 1 2 Number of Stools Toilet 1 Bladder Scan Volume (ml) Toilet 14 Result Diagrams: 03/03/19 07:45 03/04/19 05:45 - Physical Exam Constitutional: no apparent distress Eyes: PERRL Ears, Nose, Mouth, Throat: moist mucous membranes Cardiovascular: regular rate and rhythm Peripheral Pulses: 1+: femoral (R), femoral (L) Respiratory: reduced air movement Gastrointestinal: normoactive bowel sounds Genitourinary: no suprapubic tenderness Skin: no rashes Musculoskeletal: no muscular tenderness Neurologic: AAOx3 Psychiatric: cooperative ICD10 Worksheet Patient Problems: Problems Problem Status Onset Congestive cardiac failure Acute Congestive cardiomyopathy Acute Diabetes mellitus Acute Renal insufficiency Acute
[2019-03-04] MEDS: CYANO/VITAMIN B12 1000 MCG TAB PO SCH (08:45)
[2019-03-04] MEDS: TAMSULOSIN HCL 0.4 MG CAP PO SCH (08:45)
[2019-03-04] MEDS: CHOLECALCIFEROL VIT D3 1,000 UNITS TAB PO SCH (08:45)
[2019-03-04] MEDS: CARVEDILOL 6.25 MG TAB PO SCH (08:45)
[2019-03-04] MEDS: LISINOPRIL 2.5 MG TAB PO SCH (08:45)
[2019-03-04] MEDS: INSULIN LISPRO 100 UNIT/ML SC SCH ×2 (08:46→15:52)
--- NOTE | 2019-03-04 08:56 | SOAPPROG ---
SOAP Progress Note Assessment/Plan: Assessment: Plan: 02/25/19 08:50 SILVIA on CKD, appreciate renal input. Chest catheter today, Cr stable CHF with reduced EF, diuresis is good. BP fair. Tolerating higher dose of coreg Reduced EF with wall motion irregularities, poss cath DM--continue SSI insomnia--increase trazodone probable ZACKARY, continue work with CPAP 03/01/19 08:48 CHF with reduced EF and wall motion abn's. How much is CAD induced vs CHF from htn/CKD is to be determined. SILVIA on CKD--tunneled HD catheter today lower BP--stable leg weakness likely due to reduced EF DM stable insomnia with ZACKARY -- ongoing challenge 03/03/19 13:10 CHF with reduced EF, not due to CAD--will add ACEI at 2.5 mg of lisinopril. On coreg 6.25 mg BID will follow BP closely. Bedside BP 130's while talking. CKD--HD TIW as per renal, has tunneled catheter DM--stable Rehab--ok to transfer from an IM standpoint. Will need HD as part of rehab, [facility] would be patient's preference. 03/04/19 08:54 CKD--plan on continuing dialysis CHF with reduced EF, coreg and lisinopril, titrate as tolerated. Will continue meds as long as BP is 80+ systolic, no side effects with BP in the 80's currently DM-stable weakness--to rehab today Subjective: Feeling ok, no new complaints Objective: Vital Signs Temp Pulse Resp BP Pulse Ox 36.9 C 80 18 87/49 L 99 03/04/19 07:26 03/04/19 07:26 03/04/19 07:26 03/04/19 07:26 03/04/19 07:26 Laboratory Results 03/03/19 07:45 03/04/19 05:45 03/03/19 03/04/19 03/05/19 05:59 05:59 05:59 Intake Total 450 300 Output Total 100 100 Balance 350 200 PT 13.6 SEC (12.0-15.0) 03/03/19 07:45 INR 1.08 (0.83-1.16) 03/03/19 07:45 Gen: NAD, mildly pale Lungs: CTAB Heart: RRR BP 80's-100's systolic rhythm sinus Le's no edema cr 6.7 predialysis ICD10 Worksheet Patient Problems: Problems Problem Status Onset Congestive cardiac failure Acute Congestive cardiomyopathy Acute Diabetes mellitus Acute Renal insufficiency Acute
--- NOTE | 2019-03-04 08:59 | PDIAF ---
- Diagnosis Diagnosis: CKD, CHF with reduced EF, DM2 Code Status: Do Not Resuscitate - Medication Management [place] Antibiotics: n/a Discharge Medications: electronically signed and located in the Home Medication List. PICC Care - Routine: N/A - Orders Services needed: Registered Nurse, Physical Therapy, Occupational Therapy Isolation Type: None Oxygen: 0-2 lpm Diet Recommendation: no restrictions on diet Diet Texture: Regular Texture Diet Tube feeding: n/a Weigh Patient: daily Blake: No - Labs/Radiology BMP Date: 03/08/19 CBC w/diff Date: 03/08/19 - Follow Up Care Current Providers and Referrals: Patel Larson MD [Primary Care Provider] -
--- NOTE | 2019-03-04 09:50 | GDS ---
[f rep st] DISCHARGE SUMMARY DATE OF TRANSFER TO [facility]: 03/04/2019. REASON FOR ADMISSION: Suspected heart failure. DISCHARGE DIAGNOSES: 1. Heart failure with ejection fraction of 20% to 25%/reduced ejection fraction. 2. Fluid overload, resolved. 3. Zhzxr-iq-ygjnmms kidney disease, now requiring dialysis. 4. Diabetes, stable. 5. Obesity. 6. Suspected sleep apnea. 7. Insomnia. 8. Benign prostatic hyperplasia with urinary flow restriction through prostate. HOSPITAL COURSE: Patient was admitted through the ER due to increasing shortness of breath and edema . He was found to be fluid overloaded. He was found to have a reduced ejection fraction. He was fo und to have a markedly elevated creatinine. He had consultations with Cardiology and Renal. Given h is complications, he was in the ICU initially and then downgraded to PCU. His creatinine has remaine d moderately elevated between 4 and 6 with the help of supported dialysis and modification of medicin es. His blood pressure has become far lower than his typical pre-hospital baseline. He is on Coreg 6.25 mg twice a day and lisinopril 2.5 mg daily as a cocktail to hopefully improve his ejection fract ion. He is fairly asymptomatic despite his low EF. Weakness remains to be a significant issue. He is and lives independently at home prior to hospital stay. He will be transitioning to a thom ab facility, and dialysis will be arranged through [facility]. He will have outpatient followup with us when he is able to do so. We will hopefully be able to titrate up his beta-violetta and SKYLAR inhibitor as long as his blood pressure remains above 80 systolic. He seems to tolerate his lower sub 100 sys tolic blood pressures well currently. He will have ongoing followup with Renal and Cardiology as out patient, and they will certainly follow him through his dialysis treatment and see how long his lengt h of need officially becomes. /[id number]/MODL
--- NOTE | 2019-03-04 13:16 | SOAPPROG ---
FAB[facility] Progress Note Assessment/Plan: Assessment: Seen on HD SILVIA on CKD4 volume overload and SOB CHF with low EF counseled regarding dialysis, will hopefully see renal recovery within the next 3 or so months Tunneled HD cath working fine all questions answered Plan: HD today Hopefully home soon Has outpatient HD arranged at [facility] 02/25/19 15:29 02/26/19 10:01 03/04/19 13:13 Subjective: Tolerating HD well no cp nausea or vomiting SOB overall better today appetite and energy improving slept well last night enjoying his audio book Objective: Vital Signs Temp Pulse Resp BP Pulse Ox 36.9 C 80 18 87/49 L 99 03/04/19 07:26 03/04/19 07:26 03/04/19 07:26 03/04/19 07:26 03/04/19 07:26 Laboratory Results 03/03/19 07:45 03/04/19 05:45 03/03/19 03/04/19 03/05/19 05:59 05:59 05:59 Intake Total 450 300 Output Total 100 100 Balance 350 200 PT 13.6 SEC (12.0-15.0) 03/03/19 07:45 INR 1.08 (0.83-1.16) 03/03/19 07:45 Physical Exam - Physical Exam General Appearance: alert, obese Neck: normal inspection, other (RIJ tunneled HD cath in place) Respiratory: lungs clear, normal breath sounds, No rhonchi, No wheezing Cardiac/Chest: regular rate, rhythm, edema, systolic murmur, No friction rub Abdomen: normal bowel sounds, non-tender, soft Skin: warm/dry Extremities: swelling Neuro/Psych: alert, normal mood/affect, oriented x 3 ICD10 Worksheet Patient Problems: Problems Problem Status Onset Congestive cardiac failure Acute Congestive cardiomyopathy Acute Diabetes mellitus Acute Renal insufficiency Acute
--- NOTE | 2019-03-04 13:58 | ASMTLACE ---
LACE Length of stay for Answers: 7-13 days current admission Acuity / Level of Answers: Yes Care: Did the patient have an inpatient admission? Comorbidities - select Answers: Congestive heart failure all that apply Diabetes (uncontrolled or controlled) Moderate or severe liver or renal disease Other Notes: HTN; HLD # of Emergency department Answers: 0 visits in the last 6 months Score: 16 Date Signed: 03/04/2019 01:58 PM Electronically Signed By:Iram Colón RN
--- NOTE | 2019-03-04 14:03 | ASDISCHSUM ---
Discharge Information Plan Status:SNF Medically Cleared to Leave:03/04/2019 Discharge Date:03/04/2019 CM D/C Disposition:Longterm Facility ADT D/C Disposition:Longterm Facility Projected Discharge Date:03/02/2019 11:00 AM Transportation at D/C:Wheelchair Van Discharge Delay Reason: Follow-Up Date:03/02/2019 11:00 AM Discharge Slot: Final Diagnosis: Placement Information Referral Type:*Intermediate/SNF Referral ID:[id number] Provider Name:Manju Ha [facility] Address 1:[address] [facility] [facility] [address] [facility] Phone Number: Address 2: Fax Number: [facility]:Josephine Selection Factors: State:[place] Referral Type:Palliative Care Referral ID:-[id number] Provider Name:[facility] Address 1:[address] [facility] [facility] Phone Number: Address 2: Fax Number: [facility]:Tyler Selection Factors: State:[place] Patient Contact Information Contact Name:FISH Relationship: Address:[address] [place] [address] Work Phone: City:[place] Alternate Phone: State/Zip Code:[place] [address] Email: Financial Information Financial Class:Medicare Primary Plan Desc:MEDICARE INPATIENT Primary Plan Number:[id number] Secondary Plan Desc:AARP/MDR SUPPLEMENT Secondary Plan Number:[id number] Assessment Information LACE LACE Length of stay for Answers: 7-13 days current admission Acuity / Level of Answers: Yes Care: Did the patient have an inpatient admission? Comorbidities - select Answers: Congestive heart failure all that apply Diabetes (uncontrolled or controlled) Moderate or severe liver or renal disease Other Notes: HTN; HLD # of Emergency department Answers: 0 visits in the last 6 months Score: 16 Date Signed: 03/04/2019 01:58 PM Electronically Signed By:Iram Colón RN [facility] Initial CM Assessment Living Arrangements What is your living Answers: With Spouse arrangement? Who do you live with? Type Of Residence What kind of residence do Answers: House you live in? Discharge Plan Comments Coordination Status Comments Notes: Patient is an 83yo male who was admitted through his PCP for worsening congestive heart failure. PT/OT/wound care have been ordered for the patient. D/C plan TBD. CM will follow. Date Signed: 02/24/2019 04:45 PM Electronically Signed By:La Ryan LCSW [facility] CM Progress Note CM Note CM Note Notes: PT is recommending SNF or home health. OT is recommending SNF. Still early to determine exact d/c needs. Patient had dialysis catheter placed yesterday.Spoke with the family and they would like referrals to [facility] in [place] as their first choice and [facility]. Referrals have been made. The family would like to reevaluate closer to discharge as the patient is hoping for home health care. Patient's home has stairs and bedrooms and bathrooms are upstairs. Patient's and daughters think SNF is probably going to be better for him initially. CM will follow. Date Signed: 02/26/2019 12:22 PM Electronically Signed By:La Ryan LCSW [facility] CM Progress Note CM Note CM Note Notes: I spoke with party coordinator at [facility] regarding their needs from us re: patient's referral. Per Cj, if patient will need outpatient HD, they need us to set it up before discharge. Facilities near the SNF include [facility] (both in [place]). They also need more PT notes from us, which I am waiting on (only OT saw patient today). [facility] in [place] has also accepted; their requests for HD are the same as above but for a facility near [place]. Patient/family have a palliative care conference scheduled for tomorrow, Friday, 03/01 @ 1100. Case Management will follow. Date Signed: 02/28/2019 12:14 PM Electronically Signed By:Geri Lozada RN [facility] Progress Note CM Note CM Note Notes: Earnest and Emma met w/ pt and family for a palliative this AM. Pt and family are interested in a referral to [facility]. Referral sent. CM met w/ pt and for dispo planning. They believe the earliest that they can d/c is on Friday. CM sent the referral for HD at [facility]. CM spoke to Kylie at [facility] (P#: [phone], F#: [phone]). Dr. Millard will follow this case in the community. Pt and family are uncertain about going to [facility]. They initally wanted that to be their first choice because their daughter in law works there. They are realizing now that it might be difficult for friends/ to get up to [place]. Pt and are interested in [facility]. PT is recommending HC as of today. OT will [place] back to see pt. OT unable to see pt today because pt was having a palliative. CM to follow therapies recommendations to see how pt progresses. CM to follow. Date Signed: 03/01/2019 02:10 PM Electronically Signed By:ISMA Rangel [facility] JOANNE Progress Note CM Note CM Note Notes: Pts case discussed in tx rounds. JOANNE spoke to viral Paulino/ nephrology. She reports that pt can d/c tomorrow the earliest if pt has a d/c plan. CM met w/ pt and . They are hoping to d/c to a rehab. Christine from [facility] stopped by. [facility] is able to accept and bring pt to dialysis at [facility]. JOANNE spoke to pts sister Karley in person. Karley will go tour [facility] today. Karley has been to [facility] and thinks that it is a nice facility. Karley is thinking that they will most likely choose [facility] since pts family mainly live in [place]. Karley reports that the [facility] facility is off the table because it is so far. JOANNE spoke to Lindsay at [facility]. She will get back to JOANNE to see if they can bring pt to dialysis. JOANNE spoke to Kylie at [facility] (P#: [phone]). Kylie will check in to see if pt can come on Friday if pt is able to d/c to a SNF tomorrow. CM to follow. Plan: SNF w/ HD outpatient Date Signed: 03/03/2019 04:30 PM Electronically Signed By:ISMA Rangel [facility] JOANNE Progress Note CM Note CM Note Notes: CM spoke to pts daughter Santos (P#: [phone]). Natalia would like a referral made to [facility]. CM sent referral and completed non triggering pasrr. CM asked [facility] if they would be able to bring pt to [facility] HD MWF. Natalia reports that she will be in tomorrow around 11AM. CM to follow. Date Signed: 03/03/2019 04:44 PM Electronically Signed By:ISMA Rangel Case Management Discharge Plan Note Case Management Discharge Discharge Order Complete? Answers: Yes Patient to Obtain Answers: Other Notes: [facility] Transportation Arranged Answers: Other Notes: [facility] w/c with O2 arranged by Kelvin [facility] Transport will Pick (Date 03/04/2019 04:30 PM & Time) Faxed Final Orders Answers: Yes Notes: to [facility] Agency/Facility Transfer Answers: Yes Notes: to [facility] Report Printed & Faxed to Receiving Agency Family Notified Answers: Yes Notes: in group conference Discharge Comments Notes: 03/04/2019 Case Management Note Pt discharging to [facility]. Faxed final orders. RN called report. Kelvin onsite to visit family. Transport arranged by Kelvin from [facility]. Notified [facility] of d/c. Family spokesperson is daughter Myra [phone]. is Xenia [phone]. Pt sister is Karley [phone]. Daughter Lizabeth [phone] is to [facility] ([facility]) [phone]. Met w/all above to discuss d/c plan. Pt to have dialysis at [facility]. [facility] to follow. Date Signed: 03/04/2019 02:02 PM Electronically Signed By:Iarm Colón RN Intervention Information Intervention Type:*IM-Signed Date of Service:03/04/2019 10:12 AM Patient Type:Inpatient Staff Member:Marla Pitts Hours: Discipline: Severity: Comment:
--- NOTE | 2019-03-04 14:03 | ASMTDCNOTE ---
Case Management Discharge Discharge Order Complete? Answers: Yes Patient to Obtain Answers: Other Notes: [facility] Transportation Arranged Answers: Other Notes: [facility] w/c with O2 arranged by [facility] Transport will Pick (Date 03/04/2019 04:30 PM & Time) Faxed Final Orders Answers: Yes Notes: to [facility] Agency/Facility Transfer Answers: Yes Notes: to [facility] Report Printed & Faxed to Receiving Agency Family Notified Answers: Yes Notes: in group conference Discharge Comments Notes: 03/04/2019 Case Management Note Pt discharging to [facility]. Faxed final orders. RN called report. Kelvin onsite to visit family. Transport arranged by Kelvin from [facility]. Notified [facility]ann Arce of d/c. Family spokesperson is daughter Myra [phone]. is Xenia [phone]. Pt sister is Karley [phone]. Daughter Lizabeth [phone] is to [facility] ([facility]) [phone]. Met w/all above to discuss d/c plan. Pt to have dialysis at [facility]. [facility] to follow. Date Signed: 03/04/2019 02:02 PM Electronically Signed By:Iram Colón RN
[2019-03-04 15:42] VITALS: BP 96/52
[2019-03-04] MEDS ORDERED: HEPARIN 50,000 UNIT/10 ML VIAL ONE (16:30)
== END 2019-03-04 17:24 | DRG 286 ==
LOC: F2N 11:00 → F2W 02-28 17:50
PROVIDERS: ADMIT Internal Medicine Cardiovascular Disease; ATTEND Internal Medicine
PROC: 02H633Z Insertion of Infusion Device into Right Atrium, Percutaneous Approach (ICD-10-PCS; 2019-02-23)
PROC: 02HV33Z Insertion of Infusion Device into Superior Vena Cava, Percutaneous Approach (ICD-10-PCS; 2019-02-25)
PROC: 5A1D70Z Performance of Urinary Filtration, Intermittent, Less than 6 Hours Per Day (ICD-10-PCS; 2019-03-02)
PROC: 02PYX3Z Removal of Infusion Device from Great Vessel, External Approach (ICD-10-PCS; 2019-03-02)
PROC: 0JH63XZ Insertion of Tunneled Vascular Access Device into Chest Subcutaneous Tissue and Fascia, Percutaneous Approach (ICD-10-PCS; 2019-03-02)
PROC: 02HV33Z Insertion of Infusion Device into Superior Vena Cava, Percutaneous Approach (ICD-10-PCS; 2019-03-02)
PROC: B2111ZZ Fluoroscopy of Multiple Coronary Arteries using Low Osmolar Contrast (ICD-10-PCS; principal; 2019-03-03)
PROC: 4A023N8 Measurement of Cardiac Sampling and Pressure, Bilateral, Percutaneous Approach (ICD-10-PCS; principal; 2019-03-03)
PROC: B2151ZZ Fluoroscopy of Left Heart using Low Osmolar Contrast (ICD-10-PCS; principal; 2019-03-03)
DX: I13.0 Hypertensive heart and chronic kidney disease with heart failure and stage 1 through stage 4 chronic kidney disease, or unspecified chronic kidney disease (principal); I50.23 Acute on chronic systolic (congestive) heart failure; N17.9 Acute kidney failure, unspecified; N18.4 Chronic kidney disease, stage 4 (severe); E11.9 Type 2 diabetes mellitus without complications; E66.9 Obesity, unspecified; G47.33 Obstructive sleep apnea (adult) (pediatric); G47.00 Insomnia, unspecified; N40.1 Benign prostatic hyperplasia with lower urinary tract symptoms; E78.5 Hyperlipidemia, unspecified; D63.1 Anemia in chronic kidney disease; R33.9 Retention of urine, unspecified; Z66 Do not resuscitate
CPT/HCPCS: 82607-90; 86704-90; 97110-GP; 97116-GP; 97162-GP; 97166-GO; 97530-GO; 97530-GP; 97535-GO; C1750; C1751; C1760; C1769; G0472; J1642; J1644; J1815; J1940; J2250; J2310; J3010; Q9967

== ENCOUNTER 2019-03-19 16:38 | Emergency (ER) | payer OTHER, MEDICARE ==
--- NOTE | 2019-03-19 17:04 | EDPHY ---
HPI/HX/ROS/PE/MDM Narrative: CHIEF COMPLAINT: Dialysis port malfunction HPI: This patient is a pleasant 83 y/o male with history of diabetes and chronic kidney disease, on dialysis. His port in his right chest was deemed inaccessible by [facility] after 30 minutes of treatment today, and staff told him that the port may need to be replaced. The patient generally gets dialysis 3 days per week. He has history of clotted lines in the past. There has not been any bleeding or discharge from or pain around the side. His port was placed on February 25, 2019. He denies any recent fever, chest pain, shortness of breath, cough or cold symptoms, or other illness. No recent trauma. REVIEW OF SYSTEMS: A comprehensive 10 system review of systems is otherwise negative aside from elements mentioned in the history of present illness and medical decision making. PMH: Diabetes. Chronic kidney disease. SOCIAL HISTORY: . Lives in [place]. Retired. PHYSICAL EXAM: General:Patient is alert, in no acute distress. ENT:Eyes are normal to inspection. ENT inspection normal. Neck: Normal inspection. Full range of motion. Respiratory:No respiratory distress. Breath sounds normal bilaterally. Cardiovascular: Dialysis port in right chest. No erythema or discharge. Regular rate and rhythm. Strong peripheral pulses. Normal cap refill. Abdomen:The abdomen is nontender to palpation. There are no peritoneal signs. There are normal bowel sounds. Back: Normal to inspection. No tenderness to palpation. Skin: Normal color. No rash. Warm and dry. Extremities: Normal appearance. Full range of motion. Neuro: Oriented x3. Normal motor function. Normal sensory function. ED Course: 83 y/o male with history of diabetes and CKD on dialysis arrives from [facility] with complaints of a blocked dialysis port. Plan to consult with interventional radiology. Plan for I-stat chem8 to assess the patient's kidney function. 17:[address] Amaya, interventional radiologist. He will evaluate the patient. 18:03 Dr. Amaya was able to access the patient's port and obtain good flow. He does not recommend replacing the port at this time. 18:[address] Allison, fairing man. Reviewed patient's laboratory results. Dr. Allison is comfortable with the patient following up with [facility] on Friday as scheduled. The patient does not require admission for continued dialysis tonight. Reassessed patient. Discussed my consults with Drs. Amaya and Estefany. Plan to discharge home in good condition as above. Follow up and return precautions discussed. The patient is comfortable with this plan. - Data Points Laboratory Results: 03/19/19 17:36 POC Hgb 10.2 gm/dL L gm/dL (13.7-17.5) POC Hct 30 % L % (40-51) POC Sodium 139 mEq/L mEq/L (135-145) POC Potassium 4.0 mEq/L mEq/L (3.3-5.0) POC Chloride 99 mEq/L mEq/L (97-110) POC Total CO2 25 mEq/L mEq/L (22-31) POC BUN 35 mg/dL H mg/dL (7-23) POC Creatinine 4.4 mg/dL H mg/dL (0.7-1.3) POC Glucose 157 mg/dL H mg/dL (70-100) Point of Care Test Results: Chemistry 03/19/19 17:36 POC Sodium 139 mEq/L mEq/L (135-145) POC Potassium 4.0 mEq/L mEq/L (3.3-5.0) POC Chloride 99 mEq/L mEq/L (97-110) POC Total CO2 25 mEq/L mEq/L (22-31) POC BUN 35 mg/dL H mg/dL (7-23) POC Creatinine 4.4 mg/dL H mg/dL (0.7-1.3) POC Glucose 157 mg/dL H mg/dL (70-100) ISTAT H&H 03/19/19 17:36 POC Hgb 10.2 gm/dL L gm/dL (13.7-17.5) POC Hct 30 % L % (40-51) General Time Seen by Provider: 03/19/19 16:54 Initial Vital Signs: Initial Vital Signs Temperature (C) 36.8 C 03/19/19 16:45 Heart Rate 90 03/19/19 16:45 Respiratory Rate 16 03/19/19 16:45 Blood Pressure 113/64 03/19/19 16:45 O2 Sat (%) 95 03/19/19 16:45 O2 Delivery Mode Room Air Allergies/Adverse Reactions: No Known Allergies Allergy (Verified 03/23/12 19:12) Home Medications: Medication Instructions Recorded Aspirin [Aspirin 81mg (*)] 81 mg PO HS 03/23/12 Cyanocobalamin (Vitamin B-12) 1,000 mcg PO DAILY 03/23/12 [Vitamin B-12] Cholecalciferol Vit D3 [Vitamin D3 2,000 units PO DAILY 02/23/19 (*)] Atorvastatin Calcium [Lipitor 10 10 mg PO HS tab 03/04/19 mg (*)] Carvedilol [Coreg (*)] 6.25 mg PO BIDMEAL tab 03/04/19 Tamsulosin HCl [Flomax 0.4 MG (*)] 0.4 mg PO DAILY cap 03/04/19 Levemir 03/19/19 Departure - Departure Disposition: Home, Routine, Self-Care Clinical Impression: Dialysis AV fistula malfunction Qualifiers: Encounter type: initial encounter Qualified Code(s): T82.590A - Other mechanical complication of surgically created arteriovenous fistula, initial encounter Condition: Good Instructions: Hemodialysis (DC) Additional Instructions: Follow up with [facility] on Friday as scheduled. Return to the emergency department for fever, chest pain, shortness of breath, or other worsening of condition or further concerns. Referrals: Patel Larson MD [Primary Care Provider] - As per Instructions Report Scribed for: Angel Luis Pimentel Report Scribed by: Alina Carroll Date of Report: 03/19/19 Time of Report: 17:04 Physician Review and Approval Statement: Portions of this note were transcribed by an ED scribe. I personally performed the history, physical exam, and medical decision making; and confirm the accuracy of the information in the transcribed note.
[2019-03-19] MEDS ORDERED: HEPARIN 10,000 UNIT/10 ML MDV (1,000 UNIT/ML) ONE (17:26)
[2019-03-19 18:28] VITALS: BP 105/61
== END 2019-03-19 18:45 | disposition home or self-care (01) ==
DX: T82.590A Other mechanical complication of surgically created arteriovenous fistula, initial encounter (principal); N18.4 Chronic kidney disease, stage 4 (severe); E11.9 Type 2 diabetes mellitus without complications; I12.9 Hypertensive chronic kidney disease with stage 1 through stage 4 chronic kidney disease, or unspecified chronic kidney disease
CPT/HCPCS: 99285; C1769; J1644; 82435-PO; 82565-PO; 82947-PO; 84132-PO; 84295-PO; 84520-PO; 85014-ER

== ENCOUNTER 2019-03-25 07:56 | Day surgery (SDC) | payer OTHER, MEDICARE ==
[2019-03-25] MEDS ORDERED: ceFAZolin 2 GM/DEXTROSE 100 ML IV ONE (08:18)
[2019-03-25] MEDS ORDERED: MIDAZOLAM 2 MG/2 ML VIAL IVP PRN (08:18)
[2019-03-25] MEDS ORDERED: NALOXONE HCL 0.4 MG/ML INJ IVP PRN (08:18)
[2019-03-25] MEDS ORDERED: fentaNYL 100 MCG/2 ML INJ IVP PRN (08:18)
[2019-03-25] MEDS ORDERED: FLUMAZENIL 0.5 MG/5 ML MDV IVP PRN (08:18)
[2019-03-25] MEDS ORDERED: CEFAZOLIN 2 GM/DEXTROSE/100 ML BAG IV ONE (08:23)
[2019-03-25] MEDS ORDERED: NS 1,000 ML IV SCH (08:30)
[2019-03-25] MEDS ORDERED: MIDAZOLAM 2 MG/2 ML VIAL ONE (09:21)
[2019-03-25] MEDS ORDERED: NALOXONE HCL 0.4 MG/ML INJ ONE (09:21)
[2019-03-25] MEDS ORDERED: FLUMAZENIL 0.5 MG/5 ML MDV IVP ONE (09:21)
[2019-03-25] MEDS ORDERED: fentaNYL 100 MCG/2 ML INJ ONE (09:22)
[2019-03-25] MEDS ORDERED: HEPARIN 50,000 UNIT/10 ML VIAL ONE (10:33)
--- NOTE | 2019-03-25 10:33 | PDPROPOC ---
Sedation Plan of Care Sedation Plan of Care: vital signs stable, mental status noted, patient educated of risks, benefits, alternatives, patient can tolerate sedation ASA Classification: ASA 2 Planned drugs: fentanyl, midazolam Mallampati Score: Class 3 Mallampati Reference Image: Patient passed 3-3-2 rule?: Yes
--- NOTE | 2019-03-25 10:34 | PDRADPRE ---
Radiology History & Physical Indication for procedure: renal failure (Intermittently functioning Dialysis catheter - Plan for exchange to 27 cm tip to cuff length) Home medications: Aspirin [Aspirin 81mg (*)] 81 mg PO HS 03/23/12 [Last Taken 02/22/19 22:00] Cyanocobalamin (Vitamin B-12) [Vitamin B-12] 1,000 mcg PO DAILY 03/23/12 [Last Taken 02/22/19 10:00] Cholecalciferol Vit D3 [Vitamin D3 (*)] 2,000 units PO DAILY 02/23/19 [Last Taken 02/22/19 10:00] Levemir 20 units SQ DAILY 03/19/19 [Last Taken Unknown] Atorvastatin Calcium [Lipitor 10 mg (*)] 40 mg PO HS 03/24/19 [Last Taken Unknown] [place]-3 2,000 mg PO BID 03/24/19 [Last Taken Unknown] Allergies/Adverse Reactions: No Known Allergies Allergy (Verified 03/23/12 19:12) Mental status: A&Ox3 Heart exam: regular rate and rhythm Lungs exam: clear to auscultation Mallampati Score: Class 3
[2019-03-25] MEDS ORDERED: HEPARIN 10,000 UNIT/10 ML MDV (1,000 UNIT/ML) ONE (10:58)
[2019-03-25 11:03] VITALS: BP 118/55
[2019-03-25] MEDS ORDERED: ONDANSETRON 4 MG/2 ML VIAL IVP PRN (13:09)
[2019-03-25] MEDS ORDERED: ACETAMINOPHEN 325 MG TAB PO PRN (13:09)
--- NOTE | 2019-03-25 13:11 | PDRADPN ---
Radiology Procedure Note Date of Procedure: 03/25/19 Radiologist: Av Amaya Anesthesia: IV Sedation Pre-op Diagnosis: ARF Post-op Diagnosis: ARF Indication: intermittently functioning HD catheter Procedure: HD catheter exchange Finding(s): 27 cm tip to cuff HD catheter placed. Inf/Abcess present in the surg proc area at time of surgery?: No
== END 2019-03-25 11:54 | disposition home or self-care (01) ==
LOC: FIMAGING 07:56
PROVIDERS: ATTEND Radiology Vascular & Interventional Radiology
DX: Z49.01 Encounter for fitting and adjustment of extracorporeal dialysis catheter (principal); N17.9 Acute kidney failure, unspecified; N18.4 Chronic kidney disease, stage 4 (severe); E11.9 Type 2 diabetes mellitus without complications; I12.9 Hypertensive chronic kidney disease with stage 1 through stage 4 chronic kidney disease, or unspecified chronic kidney disease; E46 Unspecified protein-calorie malnutrition; D64.9 Anemia, unspecified
CPT/HCPCS: 36558; 77001; 99152; C1769; C1750; J0690; J1644; J2250; J2310; J3010

== ENCOUNTER 2019-03-29 00:30 | Inpatient (IN) | payer OTHER, MEDICARE ==
[2019-03-29] MEDS ORDERED: NA BICARBONATE 50 MEQ/50 ML VIAL ONE (00:40)
[2019-03-29] MEDS ORDERED: CALCIUM CHLORIDE 1 GM/10 ML INJ ONE (00:40)
[2019-03-29] MEDS ORDERED: NS 500 ML IV ONE (00:40)
[2019-03-29] MEDS ORDERED: EPINEPHrine 1 MG/10 ML SYR IVP ONE (00:40)
[2019-03-29] MEDS ORDERED: DOPamine/DEXTROSE 400 MG/250 ML BAG IV ONE (00:40)
--- NOTE | 2019-03-29 00:45 | EDPHY ---
H & P Time Seen by Provider: 03/29/19 00:41 HPI/ROS: HPI CHIEF COMPLAINT: Cardiac arrest, 40 Mins of downtime. HISTORY OF PRESENT ILLNESS: 83-year-old male, history of end-stage renal disease, on hemodialysis, CHF, reduced EF = 20%, presents to the emergency room by EMS for cardiac arrest. His heard him gasping for air and found him to be unresponsive 911 was called. He did not receive bystander CPR. The patient was resuscitated by EMS. Had CPR 5 rounds of epinephrine, was intubated in the field, and also had 1 shock for V-tach. He arrives to the emergency room in asystole/intubated. Patient had close to 40 minutes of CPR Prior to arrival. Upon arrival to ER Room #2. He received multiple rounds of high quality CPR as well as epinephrine, bicarb, calcium. Currently shortly after arrival he developed return of spontaneous circulation. Old medical records reviewed shows reduced ejection fraction 20%, recently here for volume overload, chronic kidney disease, dialysis, BPH, ZACKARY, diabetes Past Medical History: End-stage renal disease on hemodialysis, CHF, BPH, ZACKARY, Obesity, DM. Past Surgical History: Right chest dialysis catheter Social History: Lives locally. Family History: Noncontributory ROS REVIEW OF SYSTEMS: Limited due to patient's clinical condition Exam Constitutional unresponsive, cardiac arrest 2mm equal pupils. HENT normal inspection, atraumatic, moist mucus membranes, no epistaxis, neck supple/ no meningismus, no raccoon eyes. Respiratory Intubated, Bagged. Wet Sounding Breath Sounds. Cardiovascular no pulse upon arrival.. Gastrointestinal protuberant abdomen, no pulsatile mass. Differential Diagnosis: Includes but is not limited to in a particular order cardiac arrest, V-tach arrest, VFib arrest, PE, AAA, dissection, hyperkalemia Medical Decision Making: Plan for this patient family is not here, however will continue with resuscitation efforts. Obtain i-STAT labs, EKG, chest x-ray , ABG, Re-evaluation: 0130AM: Long discussion with the at bedside. She is unsure if she wants to pursue aggressive measures, she is unsure if she wants central line or vasopressors. Isaiah Gonzalez who is very familiar with the patient as well as the family is at bedside they are discussing about further steps/care 1:30 a.m. the patient is currently hemodynamically stable with a heart rate in the 80s, blood pressure 98/40. Intubated. I did explain to the that he had close to 50 min of CPR and I am 1 sure about his neurological outcome. Also discussed with the family about cooling and cardiac catheterization. The is unsure at this time which she would like done. She discussing it further with his primary care doctor. 0239AM: nga Benton spoke at length with the family. The patient has a DNR DNI at home. 331AM: Patient remains in critical condition, intubated, unresponsive. Family at bedside, was waiting for further family members to make further decisions about goals of care. According to Isaiah Gonzalez, patient has DNI/DNR at home. Plan to admit to ICU, Comfort Measures. Patient had close to 60 minutes of down times/cpr. Chest x-ray reviewed shows cardiomegaly, CHF, do tracheal tube in position. Right chest dialysis catheter. OG tube. Critical Care: Total Critical Care Time Spent Managing this Patient: 65 Minutes. This time was spent Exclusively with this patient. This Care was exclusive of procedures. The Organ System/life at risk was cardiopulmonary arrest This Patient was in Critical Condition because cardiopulmonary arrest. Family decided for Comfort measures. Patient will be moved to ICU for further care. Source: Patient, EMS - Medical/Surgical History Hx Asthma: No Hx Chronic Respiratory Disease: No Hx Diabetes: Yes Hx Cardiac Disease: Yes Hx Renal Disease: Yes Hx Cirrhosis: No Hx Alcoholism: No Hx HIV/AIDS: No Hx Splenectomy or Spleen Trauma: No Other PMH: CKD, DM2, Htn, shingles, anemia - Social History Smoking Status: Never smoked Constitutional: Initial Vital Signs Respiratory Rate 16 03/29/19 00:30 O2 Sat (%) 90 L 03/29/19 00:30 O2 Delivery Mode Ventilator O2 (L/minute) 100 Allergies/Adverse Reactions: No Known Allergies Allergy (Verified 03/29/19 00:50) Home Medications: Medication Instructions Recorded Aspirin [Aspirin 81mg (*)] 81 mg PO HS 03/23/12 Cyanocobalamin (Vitamin B-12) 1,000 mcg PO DAILY 03/23/12 [Vitamin B-12] Cholecalciferol Vit D3 [Vitamin D3 2,000 units PO DAILY 02/23/19 (*)] Carvedilol [Coreg (*)] 6.25 mg PO BIDMEAL tab 03/04/19 Tamsulosin HCl [Flomax 0.4 MG (*)] 0.4 mg PO DAILY cap 03/04/19 Levemir 20 units SQ DAILY 03/19/19 Atorvastatin Calcium [Lipitor 10 40 mg PO HS 03/24/19 mg (*)] [place]-3 2,000 mg PO BID 03/24/19 Medical Decision Making - Data Points Laboratory Results: Laboratory Results 03/29/19 00:35 03/29/19 00:35 Medications Given: Discontinued Medications Heparin Sodium (Porcine) (Heparin Sc Injection) 5,000 unit SC Q8 MEEK Stop: 09/25/19 05:59 Last Admin: 03/29/19 06:42 Dose: Not Given Sodium Chloride (Ns) 500 mls @ 1,000 mls/hr IV EDNOW ONE PRN Reason: Protocol Stop: 03/29/19 01:09 Last Admin: 03/29/19 00:38 Dose: 500 mls Lorazepam (Ativan Injection) 0.5 - 1 mg IVP Q8HRS PRN PRN Reason: Anxiety, Unable to Take PO Stop: 09/25/19 03:53 Last Admin: 03/29/19 05:49 Dose: 1 mg Morphine Sulfate (Morphine) 1 - 2 mg IVP Q1HR PRN PRN Reason: Pain, Severe Unable to Take PO Stop: 04/08/19 03:53 Last Admin: 03/29/19 05:15 Dose: 2 mg Morphine Sulfate (Morphine) 2 - 4 mg IVP Q1HR PRN PRN Reason: For comfort Stop: 04/08/19 05:18 Last Admin: 03/29/19 08:40 Dose: 2 mg Point of Care Test Results: Chemistry 03/29/19 03/29/19 00:42 00:38 POC Sodium 136 mEq/L mEq/L (135-145) POC Potassium 4.6 mEq/L mEq/L (3.3-5.0) POC Chloride 96 mEq/L L mEq/L (97-110) POC Total CO2 23 mEq/L mEq/L (22-31) POC BUN 12 mg/dL mg/dL (7-23) POC Creatinine 2.4 mg/dL H mg/dL (0.7-1.3) POC Glucose 324 mg/dL H mg/dL (70-100) POC Troponin I 0.02 ng/mL ng/mL (0.00-0.08) ISTAT H&H 03/29/19 00:38 POC Hgb 10.2 gm/dL L gm/dL (13.7-17.5) POC Hct 30 % L % (40-51) Departure - Departure Disposition: [facility] Inpatient Acute Clinical Impression: Cardiopulmonary arrest Condition: Critical
[2019-03-29 00:56] LABS: INR 1.26 (0.83-1.16); PROTIME(PATIENT) 15.3 SEC (12.0-15.0)
[2019-03-29 01:03] LABS: PLATELET COUNT 186 10^3/uL (150-400)
--- NOTE | 2019-03-29 02:22 | SOAPPROG ---
SOAP Progress Note Assessment/Plan: Assessment: Plan: 03/29/19 02:24 s/p arrest. A long discussion was had with (FAZAL), sister and family. DNR/ DNI wishes had been previously completed. We discussed that meaningful brain recovery is unlikely. BP is low range. Pressors could be added. Cardiology ( Dr Springer) is aware and available to consider cardiac cath. Dr Acuña has been extensively involved and is ready to place a central line and start pressors if the family so chooses. More family is in transit to the hospital and further discussions are to be had. CHF with reduced EF, Prior long hospitalization about 6-8 weeks ago. EF 20-25 %. ZACKARY, HTN, DM and age have likely led to the reduced EF CKD with recent need for dialysis, his numbers have been improving DM--overall sugars have been markedly better Subjective: Duane gasped while being observed by his this evening, but was then unresponsive. EMS arrived to find the patient pulseless in bed. CPR was initiated. 30 minutes of EMS delivered CPR was performed until ACLS was performed in the ER. With epi and shocks a regular sinus rhythm was restored. The patient has been intubated and has not had recovery of consciousness. The patient has a DNR/DNI signed form at home. His Lan and sister Karley and family are present. Lan feels shocked by the sudden turn of events. She is leaning towards being more aggressive in attempting to do everything possible to bring Duane back to his baseline. The rest of his family seem to be more comfortable with not pursuing more aggressive and life-sustaining treatments. Duane had dialysis today. He has been feeling gradually stronger. His diet has improved and medication compliance has been excellent. Objective: Vital Signs Temp Pulse Resp BP Pulse Ox 36.9 C 85 22 H 76/56 L 98 03/29/19 01:45 03/29/19 02:05 03/29/19 02:05 03/29/19 02:05 03/29/19 02:05 PT 15.3 SEC (12.0-15.0) H 03/29/19 00:35 INR 1.26 (0.83-1.16) H 03/29/19 00:35 Gen: unconscious. Intubated HEENT: small pupils Neck: no masses Heart: distant RRR Tele NSR with occas PVC's Abd obese, soft NT Ext cool, radial and PT pulses currently not palpable Labs: Hgb 9.4 WBC elevated Cr 2.1 K+ 4.7 CXR: hazy lung adair ICD10 Worksheet Patient Problems: Problems Problem Status Onset Chronic Disease Mgmt/Transitional Care Acute Congestive cardiac failure Acute Congestive cardiomyopathy Acute Diabetes mellitus Acute Renal insufficiency Acute
[2019-03-29] MEDS ORDERED: LORazepam 2 MG/ML INJ IVP PRN (03:54)
[2019-03-29] MEDS ORDERED: ACETAMINOPHEN 325 MG TAB PO PRN (03:54)
[2019-03-29] MEDS ORDERED: HYDROmorphONE/DILAUDID 1 MG/ML INJ IVP PRN (03:54)
[2019-03-29] MEDS ORDERED: ONDANSETRON 4 MG/2 ML VIAL IVP PRN (03:54)
[2019-03-29] MEDS ORDERED: PROMETHAZINE HCL 25 MG/ML INJ IVP PRN (03:54)
[2019-03-29] MEDS ORDERED: ONDANSETRON DISINTEGRATING 4 MG TAB PO PRN (03:54)
[2019-03-29] MEDS ORDERED: D50W 25 GM/50 ML VIAL IVP PRN (03:58)
[2019-03-29] MEDS ORDERED: NS 1,000 ML IV SCH ×2 (04:00→05:30)
--- NOTE | 2019-03-29 04:35 | GHP ---
[f rep st] HISTORY AND PHYSICAL DATE OF ADMISSION: 03/29/2019 REASON FOR ADMISSION: Cardiac arrest. HISTORY OF PRESENT ILLNESS: The patient is an 83-year-old male with known heart failure with reduced ejection fraction and chronic kidney disease on dialysis, who had what seems like a witness arrest b y his at about bedtime this evening. She heard him gasp, went to his bedside. He did not respo nd and at that point, called 911. CPR was performed in the field when paramedics arrived. It is est imated that 30 minutes of CPR was performed outside of a hospital setting and then ACLS procedures we re initiated in the ER, with epinephrine and shocking, he was able to recapture a sustained heart rhy thm. He did not regain consciousness. He has been on the ventilator, which has been supporting his breathing. His , Lauren, has been present along with sister Karley and their extended family. U ltimately 7 family members were present. After a lengthy discussion regarding the patient's case, he will be transferred to the ICU and whether or not he can breathe on his own will be tested. The pat gee has not been conscious since he went to bed last night. He had a relatively good day per his wi fe's recollections. He has done well with dialysis. His creatinine has been improving. His overall positivity and energy has been gradually improving. PAST MEDICAL HISTORY: Known heart failure with reduced ejection fraction estimated 20-25 percent, ch ronic kidney disease. Acute kidney failure with last hospitalization 6 or 8 weeks ago. He has been on outpatient dialysis with some slow gradual improvement. He has had prior longstanding hypertensio n, diabetes, morbid obesity, and sleep apnea. Sleep apnea has not been treated. PAST SURGICAL HISTORY: Not relevant. FAMILY HISTORY: Father young at age 47. He has living children, who are present today. ALLERGIES: No known drug allergies. MEDICATION LIST: Awaiting for interpretation from the pharmacist. Past medical history as mentioned above. REVIEW OF SYSTEMS: Patient is unable to provide history today, it seems like it was a better day mathew n they have been over the past several weeks and increased hope and enthusiasm are noted by his . PHYSICAL EXAM: VITAL SIGNS: Blood pressure has been as low as the 50s over 30s as high as 101/50, h eart rate in the 80s, respiratory rate 22, on ventilator, 100% oxygen on ventilator, respiratory rate 19, temperature 36.9 degrees. GENERAL: Unconscious male on ventilator with no response to physical stimuli. HEENT: Head no evidence of trauma. Pupils are symmetric. No reaction to light. He has tongue fasciculations in response to the ET tube. NECK: Without masses. There is some filling of t he upper lungs and chest wall. There are crackles in the lung bases. HEART: Distant, regular with occasional PVCs. ABDOMEN: Obese. There are some bowel sounds. Soft, nontender, nondistended. EXT REMITIES: Mildly cool. No easily palpable radial pulses were identified when the patient's blood pr essures were in the 50s to 60s systolic. Lower extremities with trace to 1+ edema. No palpable PT o r DP pulses. Skin is again cool but not cold. No purple or blue color to his periphery. DATABASE: Shows an elevated white blood cell count at 17.4, hemoglobin 9.4, platelet count 186. INR 1.26, creatinine 2.1. Sodium 136, potassium 4.7, glucose 316, calcium 8.1. BNP is elevated at 6200 . Troponin normal range. Albumin mildly low at 3.2. Liver functions are normal. Chest x-ray with haziness in the upper lung adair, new from previous. He has cardiomegaly. ASSESSMENT: Cardiac arrest. The patient has a complicated past medical history with known congestiv e heart failure with a reduced ejection fraction and chronic kidney disease on dialysis. He has been making progress from a general perspective. He had CPR in the field for 30 minutes. Further ACLS p rocedures in the ER, estimated 40 or 50 minutes of resuscitative efforts, perhaps up to an hour. He has not had return of any gross independent neurologic function. He is on the ventilator. He does h ave a previously signed DNR/DNI. This has been discussed repeatedly with his and family members . The family seems to be mostly congruence with wanting to adhere to Duane's wishes. His has so me concerns regarding not pursuing all options and the what ifs if he were able to regain some functi on. Ultimately, after lengthy discussions, they have decided to test whether or not he can breathe i ndependently from the ventilator. If he cannot, they will likely discontinue ventilation and allow h im to pass peacefully. No further efforts for resuscitation will be made. An official DNR will be r eplaced on his chart per family wishes. Will admit to the ICU. Will give gentle fluids. He will be covered for hyperglycemia with sliding scale insulin. He will be given heparin for prevention of de ep venous thrombosis, PE, although again the current situation is not likely to be of much benefit as I anticipate he will not have spontaneous ventilation and the family will decide to remove the ET tu be and let him pass peacefully. Over 2 hours were spent with the patient and family discussing all o f the above. We will tailor therapy based on how things go over the next couple hours. /[id number]/MODL
[2019-03-29] MEDS ORDERED: HEPARIN 5,000 UNIT/0.5 ML INJ SC SCH (06:00)
[2019-03-29] MEDS ORDERED: INSULIN LISPRO 100 UNIT/ML SC SCH (08:00)
[2019-03-29 08:44] VITALS: BP 97/63
--- NOTE | 2019-03-29 09:49 | SOAPPROG ---
SOAP Progress Note Assessment/Plan: Assessment: Plan: 03/29/19 02:24 s/p arrest. A long discussion was had with (POA), sister and family. DNR/ DNI wishes had been previously completed. We discussed that meaningful brain recovery is unlikely. BP is low range. Pressors could be added. Cardiology ( Dr Springer) is aware and available to consider cardiac cath. Dr Acuña has been extensively involved and is ready to place a central line and start pressors if the family so chooses. More family is in transit to the hospital and further discussions are to be had. CHF with reduced EF, Prior long hospitalization about 6-8 weeks ago. EF 20-25 %. ZACKARY, HTN, DM and age have likely led to the reduced EF CKD with recent need for dialysis, his numbers have been improving DM--overall sugars have been markedly better 03/29/19 09:49 Duane peacefully with family present at 9 am. Family is doing well supporting each other and [place]. Objective: Vital Signs Temp Pulse Resp BP Pulse Ox 36.8 C 99 44 H 97/63 L 5 L 03/29/19 02:27 03/29/19 08:00 03/29/19 08:00 03/29/19 08:00 03/29/19 08:00 03/28/19 03/29/19 03/30/19 05:59 05:59 05:59 Intake Total 500 Output Total 30 Balance 470 PT 15.3 SEC (12.0-15.0) H 03/29/19 00:35 INR 1.26 (0.83-1.16) H 03/29/19 00:35 ICD10 Worksheet Patient Problems: Problems Problem Status Onset Cardiopulmonary arrest Acute Chronic Disease Mgmt/Transitional Care Acute Congestive cardiac failure Acute Congestive cardiomyopathy Acute Diabetes mellitus Acute Renal insufficiency Acute
--- NOTE | 2019-03-29 10:10 | GDS ---
[f rep st] DISCHARGE SUMMARY HOSPITAL COURSE: Patient was admitted early today after arresting at home. He was able to be revive d to have a viable heart beat. Ventilation was supported by a ventilator initially. We had multiple conferences with the family and various family members regarding which course of treatment to choose . The patient was a previously chosen DNR/DNI. Ultimately, the family was in agreement to pursue co mfort measures only. His ventilator was discontinued. He was placed on CPAP. His oxygen was initially supported with delmi al cannula. He was given lorazepam and morphine with calming results. Ultimately, at 9 this morning. The patient's family was nearby, and felt the proceedings went as they would have wish ed. /[id number]/MODL
--- NOTE | 2019-03-30 06:31 | CPEKG ---
Test Reason : OPEN Blood Pressure : / mmHG Vent. Rate : 123 BPM Atrial Rate : 000 BPM P-R Int : 100 ms QRS Dur : 152 ms QT Int : 383 ms P-R-T Axes : 000 258 006 degrees QTc Int : 548 ms Atrial fibrillation Ventricular tachycardia, unsustained Nonspecific IVCD with LAD Inferior infarct, old Probable lateral infarct, age indeterminate ST depression V1-V3, suggest recording posterior leads Confirmed by Ridge Acuña ([id number]) on 03/30/2019 6:31:10 AM Referred By: Ridge Acuña Confirmed By:Ridge Acuña
--- NOTE | 2019-03-30 18:07 | PDMN ---
Medical Necessity Medical necessity: Pt meets IP criteria per PA & MCG [facility] Cardiology; est los > 2 mn for eval/tx of cardiac arrest; admit to ICU; complicated medical hx including recent hospitalization for CHF; per H&P & order 03/29/19
== END 2019-03-29 09:00 | disposition expired | DRG 296 ==
LOC: EDUNIT# → F2N 04:15
PROVIDERS: ADMIT Internal Medicine; ATTEND Internal Medicine
PROC: 5A1935Z Respiratory Ventilation, Less than 24 Consecutive Hours (ICD-10-PCS; principal; 2019-03-29)
DX: I46.9 Cardiac arrest, cause unspecified (principal); N18.6 End stage renal disease; Z51.5 Encounter for palliative care; Z66 Do not resuscitate; E86.9 Volume depletion, unspecified; Z99.2 Dependence on renal dialysis; I50.9 Heart failure, unspecified; N40.0 Benign prostatic hyperplasia without lower urinary tract symptoms; G47.33 Obstructive sleep apnea (adult) (pediatric); E11.9 Type 2 diabetes mellitus without complications; E66.01 Morbid (severe) obesity due to excess calories
CPT/HCPCS: 82435-PO; 82565-PO; 82947-PO; 84132-PO; 84295-PO; 84484-ER; 84520-PO; 85014-ER; J1265; J2060; J2270